=== PATIENT | male | born 1990 | race Hispanic/Latino ===

== ENCOUNTER 2020-02-21 07:35 | Inpatient (IN) | payer BC, OTHER ==
[~2020-02-21] VITALS: Ht 172.7 cm; Wt 96.2 kg
[2020-02-21] VITALS (10 sets, daily range): BP systolic 99–137; BP diastolic 59–75
[~2020-02-21 07:35] MED LIST: ACETAMINOPHEN PO; CREON DR 6,000 U1 EA PO; CRESTOR; CRESTOR40 MG PO; HYDROCODONE PO; LEVEMIR 3M100 UNITS/ SQ; LOPID; LORTAB 10-5001 EACH PO; NEXIUM40 MG PO; NOVOLOG MI100 UNIT/1 SQ; PROTONIX40 M1 PO; TRICOR145 MG PO; Z.0.CRESTOR20 MG PO; Z.0.LOPID600 MG PO; Z.0.PROTONIX40 MG PO; Z.0.ZOCOR20 MG PO
[2020-02-21] MEDS ORDERED: HYDROCODONE/APAP 10MG-325MG TAB PO ONE (07:45)
[2020-02-21] MEDS ORDERED: SODIUM CHLORIDE 0.9% 1000ML 1,000 ML IV SCH ×2 (08:00→10:00)
--- NOTE | 2020-02-21 08:01 | Emergency Department Note ---
History of Present Illnes History of Present Illness Chief Complaint: Chest Pain History of Present Illness This is a 30 year old male Chief Complaint Comment PATIENT IN FROM HOME WITH COMPLAINTS OF EPIGASTRIC PAIN SINCE YESTERDAY; STATES HE FEELS THAT IT IS HIS PANCREAS - THAT HE HAS HAD ISSUES WITH IT SINCE HE WAS A TEENAGER. PATIENT ALERT AND ORIENTED, RESP EVEN AND NONLABORED, APPEARS IN NO DISTRESS, RATES PAIN 02/24 Historian: Patient Arrival Mode: Car Appellate Court Judge Required: No Onset (how long ago): day(s) (1) Location: epigastrum Quality: Sharp Radiation: Reports non-radiation Severity: severe Onset quality: gradual Duration (how long): day(s) (1) Timing of current episode: constant Progression: worsening Chronicity: new Context: Denies recent illness, Denies recent surgery Relieving factors: none Exacerbating factors: none Associated symptoms: Reports denies other symptoms Treatments prior to arrival: none Past Medical/Family History Physician Review I have reviewed the patient's past medical and family history. Any updates have been documented here. Past Medical History Recent Fever: No Clinical Suspicion of Infectio: No New/Unexplained Change in Ment: No Past Medical History: Diabetes, GERD Other Medical History: PANCREATITIS, GERD Past Surgical History: None Other Last Tetanus: UNKNOWN Review of Systems Review of Systems Constitutional: Reports no symptoms EENTM: Reports no symptoms Cardiovascular: Reports no symptoms Respiratory: Reports no symptoms Gastrointestinal: Reports as per HPI, Reports abdominal pain Genitourinary: Reports no symptoms Musculoskeletal: Reports no symptoms Integumentary: Reports no symptoms Neurological: Reports no symptoms Psychological: Reports no symptoms Endocrine: Reports no symptoms Hematological/Lymphatic: Reports no symptoms Physical Exam Related Data Allergies: Coded Allergies: meperidine (Verified Allergy, Mild, ITCHING, 02/21/20) Triage Vital Signs Vital Signs Date Time Temp Pulse Resp B/P (MAP) Pulse Ox O2 Delivery O2 Flow Rate FiO2 02/21/20 07:39 97.5 79 18 150/84 100 Room Air Vital signs reviewed: Yes Physical Exam CONSTITUTIONAL Constitutional: Present well-developed, Present well-nourished HENT HENT: Present normocephalic, Present atraumatic, Present oropharynx cl ear/moist, Present nose normal HENT L/R: Present left ext ear normal, Present right ext ear normal EYES Eyes: Reports PERRL, Reports conjunctivae normal NECK Neck: Present ROM normal PULMONARY Pulmonary: Present effort normal, Present breath sounds normal CARDIOVASCULAR Cardiovascular: Present regular rhythm, Present heart sounds normal, Present capillary refill normal, Present normal rate GASTROINTESTINAL Abdominal: Present soft, Present bowel sounds normal, Present tender (Mild epigastrum) GENITOURINARY Genitourinary: Present exam deferred SKIN Skin: Present warm, Present dry MUSCULOSKELETAL Musculoskeletal: Present ROM normal NEUROLOGICAL Neurological: Present alert, Present oriented x 3, Present no gross motor or se nsory deficits PSYCHOLOGICAL Psychological: Present mood/affect normal, Present judgement normal Results Laboratory Lab results reviewed: Yes Imaging Imaging results reviewed: Yes Diagnostics Tests Diagnostic test(s) reviewed: Yes Procedures 12 Lead ECG Interpretation ECG Interpretation : Appellate Court Judge: Interpreted by ED physician Date: Feb 21, 2020 Rhythm: sinus rhythm Rate: normal QRS axis: normal ST segments normal: Yes T waves normal: Yes Clinical Impression: normal ECG Assessment & Plan Medical Decision Making MDM 30-year-old male with a past medical history significant for diabetes and hyper lipidemia presents emergency department for epigastric abdominal pain. Initial differential includes hypertriglyceridemia, otitis, DKA, gastritis. Examination shows mild epigastric tenderness to palpation. Workup shows glucose 240, lipase 240 and anion gap 28. He was given 2 boluses of normal saline, pain medicine, started on DKA protocol. Etiology could be secondary to hypertriglyceridemia but it will take time to get this laboratory workup back. Discussed patient with Dr. Nataliia Jones who has agreed to admit her to the ICU for DKA, pancreatitis, potential hypertriglyceridemia. Reassessment Reassessment time: 10:19 Reassessment Well appearing, pain improved Assessment & Plan Final Impression: (1) Pancreatitis (2) DKA (diabetic ketoacidoses) Depart Disposition: ADMITTED Last Vital Signs Date Time Temp Pulse Resp B/P (MAP) Pulse Ox O2 Delivery O2 Flow Rate FiO2 02/21/20 07:39 97.5 79 18 150/84 100 Room Air Medications in the ED Acetaminophen/ Hydrocodone Bitart 1 ea ONCE ONCE PO ; Start 02/21/20 at 07:45; Stop 02/21/20 at 07:46; Status UNV TYSON GRANT MD Feb 21, 2020 08:01
[2020-02-21 08:15] LABS: BASOPHILS # (AUTO) 0.1 (0.0-0.1); BASOPHILS % 0.8 % (0.0-1.0); EOSINOPHILS # (AUTO) 0.2 (0.0-0.4); EOSINOPHILS % 2.4 % (0.0-6.0); HEMATOCRIT 40.6 % (38.2-49.6); HEMOGLOBIN 15.1 g/dL (14.0-18.0); LYMPHOCYTES # (AUTO) 1.3 (1.0-3.2); LYMPHOCYTES % 17.1 % (18.0-39.1); MEAN CORPUSCULAR HEMOGLOBIN 30.7 pg (28-32); MEAN CORPUSCULAR HGB CONC 37.2 g/dL (31-35); MEAN CORPUSCULAR VOLUME 82.5 fL (81-99); MONOCYTES # (AUTO) 0.5 (0.2-0.8); NEUTROPHILS # (AUTO) 5.4 (2.1-6.9); NEUTROPHILS % 72.6 % (38.7-80.0); PLATELET COUNT 137 x10e3/uL (140-360); RED BLOOD COUNT 4.92 x10e6/uL (4.3-5.7)
[2020-02-21] MEDS ORDERED: ONDANSETRON HCL INJ 2MG/ML 2ML 2 MG/ML VIAL IV STA (08:39)
[2020-02-21 08:43] LABS: LIPASE 257 U/L (8-78)
[2020-02-21] MEDS ORDERED: ONDANSETRON HCL INJ 2MG/ML 2ML 2 MG/ML VIAL ONE (08:50)
[2020-02-21 08:51] LABS: ALANINE AMINOTRANSFERASE 30 IU/L (0-55); ALBUMIN 4.1 g/dL (3.5-5.0); ALBUMIN/GLOBULIN RATIO 0.7 (0.8-2.0); ALKALINE PHOSPHATASE 88 IU/L (40-150); ANION GAP 28.1 mmol/L (8-16); BLOOD UREA NITROGEN 12 mg/dL (7-26); BUN/CREATININE RATIO 15 (6-25); CALCIUM 9.3 mg/dL (8.4-10.2); CARBON DIOXIDE 10 mmol/L (22-29); CHLORIDE 99 mmol/L (98-107); CREATININE, SERUM 0.81 mg/dL (0.72-1.25); EST GLOMERULAR FILTRATION RATE > 60 ML/MIN (60-); GLUCOSE 233 mg/dL (74-118); POTASSIUM 4.1 mmol/L (3.5-5.1); SODIUM 133 mmol/L (136-145)
--- NOTE | 2020-02-21 08:53 | Diagnostic Imaging Report ---
EXAMINATION: CHEST SINGLE (PORTABLE) INDICATION: Chest pain COMPARISON: Report of chest radiograph from 01/23/2013 (images not available for comparison) FINDINGS: LINES/TUBES:None LUNGS:The lungs are well-inflated. No focal consolidation or pulmonary edema. PLEURA:No pleural effusion or pneumothorax. MEDIASTINUM:The cardiomediastinal silhouette appears normal in size and shape. BONES/SOFT TISSUES:No acute osseous injury. ABDOMEN:No free air under the diaphragm. IMPRESSION: No focal pneumonia or pulmonary edema. Signed by: Matilde Kraus MD on 02/21/2020 8:50 AM
[2020-02-21] MEDS ORDERED: FENTANYL CITRATE/PF 100MCG/2 ML INJ IV ONE (09:15)
[2020-02-21] MEDS ORDERED: FENTANYL CITRATE/PF 100MCG/2 ML INJ ONE (09:38)
[2020-02-21 09:50] LABS: CLARITY,URINE CLEAR (CLEAR); COLOR,URINE YELLOW (YELLOW); KETONES,URINE 2+ (NEGATIVE); LEUKOCYTE ESTERASE ,URINE NEGATIVE (NEGATIVE); NITRITE,URINE NEGATIVE (NEGATIVE); PROTEIN,URINE DIPSTICK 1+ (NEGATIVE); URINE UROBILINOGEN 0.2 mg/dL (0.2 - 1)
[2020-02-21 09:51] LABS: BILIRUBIN,URINE SMALL (NEGATIVE)
[2020-02-21] MEDS ORDERED: POTASSIUM CHLORIDE 20MEQ/100ML 100 ML INJ PRN (10:00)
[2020-02-21] MEDS ORDERED: MAGNESIUM SULF 1GRAM/DEXTROSE 100 ML IV PRN (10:00)
[2020-02-21 10:10] LABS: BACTERIA,URINE FEW /HPF; EPITHELIAL CELLS,URINE FEW /LPF; RBC,URINE 0-5 /HPF (0-5); WBC,URINE (MAN) 0-5 /HPF (0-5)
--- OUTSIDE RECORDS SUMMARY | 2020-02-21 10:18 | XMS REPORT | Continuity of Care Document ---
Author Author [facility] Organization [facility] Address [address] [place] [address] Dr. Claudio [address] [place] [id number] Phone Unavailable Care Team Providers Care Supplier Quality Manager Name Role Phone Dionne Fuchs Attphykaushal Unavailable Payers Payer Name Policy Type Policy Number Effective Date Expiration Date S ource Problems This patient has no known problems. Allergies, Adverse Reactions, Alerts Allergy Name Allergy Type Status Severity Reaction(s) Onset Date Inacti ve Date Treating Clinician Comments Source CHG WIPES DA Active UT 2018-08-08 00:00:00 [facility] CHG WIPES DA Active MO 2018-07-21 00:00:00 [facility] No Known Allergies DA Active U 2018-06-21 00:00:00 [facility] No Known Allergies DA Active U 2017-10-20 00:00:00 [facility] Medications This patient has no known medications. Procedures This patient has no known procedures. Results Test Description Test Time Test Comments Results Result Comments Source CHEST SINGLE (PORTABLE) 2020-02-21 08:49:00 [facility] [address], [place] [address] Patient Name: BAO ESQUIVEL MR #: [id number] : 1990 Age/Sex: 30/M Req #: [id number] Adm Physician: Ordered by: Tyson Fuchs MD Report #: [id number] Location: ER Room/Bed: Procedure: [id number] DX/CHEST SINGLE (PORTABLE) Exam Date: 02/21/20 Exam Time: 0750 REPORT STATUS: Signed EXAMINATION: CHEST SINGLE (PORTABLE) INDICATION: Chest pain COMPARISON: Report of chest radiograph from 01/23/2013 (images not available for comparison) FINDINGS: LINES/TUBES:None LUNGS:The lungs are well-inflated. No focal consolidation or pulmonary edema. PLEURA:No pleural effusion or pneumothorax. MEDIASTINUM:The cardiomediastinal silhouette appears normal in size and shape. BONES/SOFT TISSUES:No acute osseous injury. ABDOMEN:No free air under the diaphragm. IMPRESSION: No focal pneumonia or pulmonary edema. Signed by: Yomaira Watkins MD on 02/21/2020 8:50 AM Dictated By: YOMAIRA WATKINS MD 0850 Transcribed By: SUZIE on 02/21/20 0850 COPY TO: TYSON FUCHS MD LIPID PROFILE (CORONARY RISK) 2018-08-10 08:23:00 Test Item TRIGLYCERIDES (test code = TRIG) 290 mg/dL 40-150 H CHOLESTEROL (test code = CHOL) 249 mg/dL <200 H CHOLESTEROL/HDL RATIO (test code = CHOLHDL) 7.11 RATIO 3.43-4.97 H RISK ASSOCIATED WITH CHOL/HDL RATIOS: RISK MALE FEMALE1/2 AVERAGE 3.43 3.27AVERAGE 4.97 4.442X AVERAGE 9.55 7.053X AVERAGE 23.39 11.04 NOTE THAT THE REFERENCE VALUE IS RELATEDTO RISK LEVELS RECOMMENDED BY THE NATL.HEART, LUNG, AND BLOOD INST. HDL CHOLESTEROL (test code = HDL) 35.0 mg/dL 32-72 N LIPOPROTEIN LDL (test code = LDL) 139 mg/dL 0-100 H <100 [id number] NEAR OPTIMAL/ABOVE [id number] HIGH>QU=636 VERY HIGH*Guidelines provided by the National Cholesterol EducationProgram Adult Treatment Panel III [id number] 05:56:00* Test Item Value Reference Range Interpretation Comments GLUBED (test code = GLUBED) 197 MG/DL 70-110 H 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 at [facility] [id number] 05:04:00* Test Item Value Reference Range Interpretation Comments GLUBED (test code = GLUBED) 192 MG/DL 70-110 H 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 at [facility]2019-03-25 21:11:00* Test Item Value Reference Range Interpretation Comments GLUBED (test code = GLUBED) 316 MG/DL 70-110 H 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 at [facility]2019-03-25 13:22:00* Test Item Value Reference Range Interpretation Comments GLUBED (test code = GLUBED) 176 MG/DL 70-110 H 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 at [facility]2019-03-25 07:21:00* Test Item Value Reference Range Interpretation Comments GLUBED (test code = GLUBED) 188 MG/DL 70-110 H 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 at [facility] COMPREHENSIVE METABOLIC [id number] 07:03:00* Test Item Value Reference Range Interpretation Comments SODIUM (test code = NA) 137 mEq/L 134-147 N POTASSIUM (test code = K) 4.0 mEq/L 3.4-5.0 N CHLORIDE (test code = CL) 106 mEq/L 100-108 N CARBON DIOXIDE (test code = CO2) 29 mEq/L 21-33 ANION GAP (test code = GAP) 6 0-20 N GLUCOSE (test code = GLU) 164 mg/dL 70-110 H BLOOD UREA NITROGEN (test code = BUN) 19 mg/dL 7-18 H GLOMERULAR FILTRATION RATE (test code = GFR) 195.2 105-110 H Units of measure = ml/min/1.73 m2 CREATININE (test code = CREAT) 0.5 mg/dL 0.6-1.3 L TOTAL PROTEIN (test code = PROT) 6.7 g/dL 6.4-8.2 ALBUMIN (test code = ALB) 3.20 g/dL 3.4-5.0 L CALCIUM (test code = CA) 8.7 mg/dL 8.0-10.5 N BILIRUBIN TOTAL (test code = BILT) 0.60 mg/dL 0.0-1.0 SGOT/AST (test code = AST) 22 IUnit/L 15-37 SGPT/ALT (test code = ALT) 14 IUnit/L 15-65 L ALKALINE PHOSPHATASE TOTAL (test code = ALKP) 93 IUnit/L 20-125 N [id number] 07:03:00* Test Item Value Reference Range Interpretation Comments LIPASE (test code = LIP) 4646 IUnit/L 73-393 H [id number] 06:08:00* Test Item Value Reference Range Interpretation Comments GLUBED (test code = GLUBED) 166 MG/DL 70-110 H 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 at [facility] HGBA1C%2018-08-09 06:07:00* Test Item Value Reference Range Interpretation Comments HGBA1C% (test code = HGBA1C%) 11.0 %A1C 4.8-6.0 H CBC W/AUTO [id number] 05:10:00* Test Item Value Reference Range Interpretation Comments WHITE BLOOD CELL (test code = WBC) 5.60 x10 3/uL 4.5-11.0 RED BLOOD CELL (test code = RBC) 4.78 x10 6/uL 4.00-5.60 N HEMOGLOBIN (test code = HGB) 12.6 g/dL 12.5-16.9 HEMATOCRIT (test code = HCT) 42.1 % 37.5-50.7 N MEAN CELL VOLUME (test code = MCV) 88.1 fL 81.0-99.0 MEAN CELL HGB (test code = MCH) 26.4 pg 27.0-33.0 L MEAN CELL HGB CONCETRATION (test code = MCHC) 29.9 g/dL 33.0-37. 0 L RED CELL DISTRIBUTION WIDTH CV (test code = RDW) 14.4 % 11.5- 14.5 N RED CELL DISTRIBUTION WIDTH SD (test code = RDW-SD) 46.2 fL 37 .0-54.0 N PLATELET COUNT (test code = PLT) 141 x10 3/uL 150-400 L MEAN PLATELET VOLUME (test code = MPV) 12.4 fL 7.0-9.0 H NEUTROPHIL % (test code = NT%) 52.3 % 56.0-77.0 L IMMATURE GRANULOCYTE % (test code = IG%) 0.2 % 0.0-2.0 N LYMPHOCYTE % (test code = LY%) 31.6 % 14.0-32.0 N MONOCYTE % (test code = MO%) 8.6 % 4.8-9.0 N EOSINOPHIL % (test code = EO%) 6.6 % 0.3-3.7 H BASOPHIL % (test code = BA%) 0.7 % 0.0-2.0 N NUCLEATED RBC % (test code = NRBC%) 0.0 % 0-0 N NEUTROPHIL # (test code = NT#) 2.93 x10 3/uL 2.0-7.6 N IMMATURE GRANULOCYTE # (test code = IG#) 0.01 x10 3/uL 0.00-0.03 N LYMPHOCYTE # (test code = LY#) 1.77 x10 3/uL 1.0-3.8 N MONOCYTE # (test code = MO#) 0.48 x10 3/uL 0.1-0.8 N EOSINOPHIL # (test code = EO#) 0.37 x10 3/uL 0.0-0.2 H BASOPHIL # (test code = BA#) 0.04 x10 3/uL 0.0-0.2 N NUCLEATED RBC # (test code = NRBC#) 0.00 x10 3/uL 0.0-0.1 N MANUAL DIFF REQUIRED (test code = MDIFF) NO [id number] 18:17:00* Test Item Value Reference Range Interpretation Comments GLUBED (test code = GLUBED) 198 MG/DL 70-110 H 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 at [facility] [id number] 15:26:00* Test Item Value Reference Range Interpretation Comments GLUBED (test code = GLUBED) 310 MG/DL 70-110 H 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 at [facility] [id number] 08:54:00* Test Item Value Reference Range Interpretation Comments GLUBED (test code = GLUBED) 291 MG/DL 70-110 H 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 at [facility] URINALYSIS [id number] 23:09:00* Test Item Value Reference Range Interpretation Comments UA COLOR (test code = COLU) YELLOW YEL/STRAW UA APPEARANCE (test code = APPU) CLEAR CLEAR UA GLUCOSE DIPSTICK (test code = DGLUU) 3+ NEGATIVE A UA BILIRUBIN DIPSTICK (test code = BILU) NEGATIVE NEGATIVE UA KETONE DIPSTICK (test code = KETU) 1+ NEGATIVE A UA SPECIFIC GRAVITY (test code = SGU) > 1.060 1.005-1.030 H UA BLOOD DIPSTICK (test code = REENA) NEGATIVE NEGATIVE UA PH DIPSTICK (test code = VITOR) 5.0 5.0-7.0 N UA PROTEIN DIPSTICK (test code = PROU) NEGATIVE NEGATIVE UA UROBILINIOGEN DIPSTICK (test code = URO) 0.2 mg/dL 0.2-1.0 UA NITRITE DIPSTICK (test code = OMAR) NEGATIVE NEGATIVE UA LEUKOCYTE ESTERASE DIPSTICK (test code = LEUU) NEGATIVE NEGA TIVE UA WBC (test code = WBCU) 0-3 WBC/HPF 0-3 UA RBC (test code = RBCU) 4-10 RBC/HPF 0-3 UA BACTERIA (test code = BACU) NONE SEEN /HPF NONE SEEN UA SQUAMOUS CELLS (test code = SQU) 0-5 /HPF NONE SEEN UA MUCUS (test code = MUCU) TRACE /LPF NONE SEEN COMMENTS: Clean Catch- CT ABD PELVIS [id number] 22:36:00 Name: BAO ESQUIVEL [facility] : 1990 Age/S: 28 / M [address] [place] [address] Unit #: [id number] Loc: [place] [address] Phys: Priya Brooks SLIP TENDER Acct: [id number] Di s Date: Status: REG ER PHONE #: Exam Date: 08/07/2018 2142 FAX #: Reason: ABDOMINAL PAIN EXAMS: CPT CODE: [id number] CT ABD PELVIS W/CONT 59080 Clinical Indication: ABDO DAVID PAIN Comparison: CT abdomen pelvis July 20, 2018 TECHN IQUE: Helical imaging was performed after injection of IV contrast, from t he lung base through the symphysis with multiplanar reformations obtained. IV CONTRAST: 100 mL of Isovue-300 GI CONTRAST: Oral contrast was ad ministered. DLP: 351 mGy-cm FINDINGS: CT ABDO MEN AND PELVIS WITH CONTRAST: LUNG BASE: The lung bases are clear . LIVER: The liver parenchyma is normal in appearance without mass es or intrahepatic biliary ductal dilatation. The portal vein is normal in caliber. BILIARY TREE: The common bile duct is normal in ca liber without evidence of filling defects. GALLBLADDER: The gallbladder is unremarkable, there is no evidence of cholelithiasis or cho lecystitis. PANCREAS: Moderate amount of fat stranding is seen khari und the entire pancreas. The extent of edema and inflammation appears sli ghtly improved since the last exam. No organized fluid collection is seen around the pancreas. SPLEEN: The spleen is normal in size a nd there are no parenchymal abnormalities. ADRENALS: The rig ht adrenal gland is unremarkable. The left adrenal gland is unremarkable . KIDNEYS: The kidneys demonstrates normal contrast enhancement. T here are no masses. There is no evidence of renal or ureteral calculi. There is no evidence of hydronephrosis. BOWEL: The visualized p ortion of the esophagus is unremarkable. The stomach is unremarkable. Th e small bowel is normal in caliber and there is no evidence of masses or o bstruction. . The colon is normal in caliber without any masses. Divertic ulosis without evidence of PAGE 1 Signed Report (CONTINUED) Name: BAO ESQUIVEL [facility] Marlen Galindo roma : 1990 Age/S: 28 / M [address] [place] [address] Unit #: [id number] Loc: [place] [address] Phys: Eugenia Brooks [facility] Acct: [id number] Dis Date: Status: REG ER PHONE #: [phone] Exam Date: 08/07/2018 214 FAX #: [phone] Reason: ABDOMINAL PAIN EXAMS: CPT CODE: [id number] CT ABD PELVIS W/CONT 58976 < Continued> diverticulitis is seen in the distal colon. APPENDIX: The appendix takes in the right upper quadrant of the abdomen with the tip adjacent near the inflamed pancreas. The appendix measures 8 mm in caliber without any significant fat stranding. 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 PELVIS: There are no pelvic masses. The urinary bladder is unremarkable. The prostate and seminal vesicles are unremarkable. PERITONEUM: There is no evidence for free intraperitoneal fluid or air. SOFT TISSUES: The soft tissues are unremarkable. There is no evidence of masses or hernias. LYMPH NODES: There is no evidence of mesenteric, retroperitoneal, or inguinal lymphadenopathy. VASCULATURE: The abdominal aorta is normal in caliber. The branches of the abdominal aorta are widely patent. MUSCULOSKELETAL: The visualized bony skeleton is unremarkable. IMPRESSION: 1. Interval mild decreased in peripancreatic edema of the inflamed pancreas since the last exam. No evidence of pseudocyst is seen. Enhancement of the pancreatic head and body is also improved since the last exam. 2. Diverticulosis without evidence of diverticulitis in the distal colon. 3. The appendix is located near the inflamed pancreas in the right upper quadrant of the abdomen. The appendix measures 8mm in caliber without any significant fat stranding. SL: [id number] at 2236 Reported and signed by: Pepe Katz M.D. PAGE 2 Signed Report (CONTINUED) Name: BAO ESQUIVEL [facility] : 1990 Age/S: 28 / M [address] [place] [address] Blvd Unit #: [id number] Loc: [place] [address] Phys: Eugenia Brooks Acct: [id number] Dis Date: Status: REG ER PHONE #: [phone] Exam Date: 08/07/20182141 FAX #: Reason: ABDOMINAL PAIN EXAMS: CPT CODE: [id number] CT ABD PE LVIS W/CONT 99659 <Continued> CC: Joan Brooks Technologist:Kellee Hodgson RT(R)(CT); Juliana Lemus CTDI: DLP: Trnscb Date/Time: 08/07/2018 (2235) [email or web address] Orig Print D/T: S: 08/07/2018 (2238) CTDI: DLP: PAGE 3 Signed Report COMPREHENSIVE METABOLIC PANEL 2018-08-07 21:08:00* Test Item Value Reference Range Interpretation Comments SODIUM (test code = NA) 134 mEq/L 134-147 N POTASSIUM (test code = K) 4.5 mEq/L 3.4-5.0 N SP ECIMEN 1+ HEMOLYZED.Results known to be adversely affected by hemolysis are: Potassium Magnesium LDH Phosphorus GROSS LIPEMIA OBSERVED CHLORIDE (test code = CL) 99 mEq/L 100-108 L CARBON DIOXIDE (test code = CO2) 23 mEq/L 21-33 N ANION GAP (test code = GAP) 17 0-20 N GLUCOSE (test code = GLU) 258 mg/dL 70-110 H BLOOD UREA NITROGEN (test code = BUN) 14 mg/dL 7-18 N GLOMERULAR FILTRATION RATE (test code = GFR) 158.2 105-110 H Units of measure = ml/min/1.73 m2 CREATININE (test code = CREAT) 0.6 mg/dL 0.6-1.3 N TOTAL PROTEIN (test code = PROT) 8.7 g/dL 6.4-8.2 H ALBUMIN (test code = ALB) 3.80 g/dL 3.4-5.0 N CALCIUM (test code = CA) 7.9 mg/dL 8.0-10.5 L BILIRUBIN TOTAL (test code = BILT) 0.90 mg/dL 0.0-1.0 N SGOT/AST (test code = AST) 54 IUnit/L 15-37 H SGPT/ALT (test code = ALT) 39 IUnit/L 15-65 N ALKALINE PHOSPHATASE TOTAL (test code = ALKP) 123 IUnit/L 20-125 N HEPATIC FUNCTION [id number] 21:08:00* Test Item Value Reference Range Interpretation Comments BILIRUBIN DIRECT (test code = BILD) < 0.10 MG/DL 0.0-0.30 BILIRUBIN INDIRECT (test code = BILIND) 0.80 MG/DL [id number] 21:08:00* Test Item Value Reference Range Interpretation Comments LIPASE (test code = LIP) 4704 IUnit/L 73-393 H PROTHROMBIN [id number] 21:00:00* Test Item Value Reference Range Interpretation Comments PROTHROMBIN TIME PATIENT (test code = PTP) 11.2 SECONDS 9.3-12.9 N INTERNATIONAL NORMAL RATIO (test code = INR) 1.0 0.8-1.2 N TARGET INR BY INDICATION Indication INR1. Prophylaxis of venous thrombosis 2.0 - 3.0 (orthopedic surgery), Prophylaxis of venous thrombosis (other than high-risk surgery), Treatment of Deep Vein Thrombosis/Pulmonary Embolism, Prevention of systemic embolism - Tissue heart valves, Acute Myocardial Infarction (to prevent systemic embolism), Valvular heart disease, Atrial Fibrillation, Bileaflet mechanical valve in aortic position.2. Mechanical prosthetic valves (high risk), 2.5 - 3.5 Presence of Lupus Anticoagulant or Antiphospholipid Antibodies, Prevention of systemic embolism - Acute Myocardial Infarction (to prevent recurrent infarct). THROMBOPLASTIN TIME [id number] 21:00:00* Test Item Value Reference Range Interpretation Comments THROMBOPLASTIN TIME PARTIAL (test code = PTT) 34.2 Seconds 25.0-39. 5 N Therapeutic Range: 61.8-83.8 Sec Effective 06/15/2013 CBC W/AUTO [id number] 20:32:00* Test Item Value Reference Range Interpretation Comments WHITE BLOOD CELL (test code = WBC) 12.55 x10 3/uL 4.5-11.0 H RED BLOOD CELL (test code = RBC) 5.65 x10 6/uL 4.00-5.60 H HEMOGLOBIN (test code = HGB) 16.2 g/dL 12.5-16.9 N HEMATOCRIT (test code = HCT) 46.9 % 37.5-50.7 N MEAN CELL VOLUME (test code = MCV) 83.0 fL 81.0-99.0 N MEAN CELL HGB (test code = MCH) 28.7 pg 27.0-33.0 N MEAN CELL HGB CONCETRATION (test code = MCHC) 34.5 g/dL 33.0-37. 0 N RED CELL DISTRIBUTION WIDTH CV (test code = RDW) 13.3 % 11.5- 14.5 N RED CELL DISTRIBUTION WIDTH SD (test code = RDW-SD) 40.6 fL 37 .0-54.0 N PLATELET COUNT (test code = PLT) 215 x10 3/uL 150-400 N MEAN PLATELET VOLUME (test code = MPV) 12.0 fL 7.0-9.0 H NEUTROPHIL % (test code = NT%) 83.7 % 56.0-77.0 H IMMATURE GRANULOCYTE % (test code = IG%) 0.3 % 0.0-2.0 N LYMPHOCYTE % (test code = LY%) 8.7 % 14.0-32.0 L MONOCYTE % (test code = MO%) 5.7 % 4.8-9.0 N EOSINOPHIL % (test code = EO%) 0.8 % 0.3-3.7 N BASOPHIL % (test code = BA%) 0.8 % 0.0-2.0 N NUCLEATED RBC % (test code = NRBC%) 0.2 % 0-0 H NEUTROPHIL # (test code = NT#) 10.51 x10 3/uL 2.0-7.6 H IMMATURE GRANULOCYTE # (test code = IG#) 0.04 x10 3/uL 0.00-0.03 H LYMPHOCYTE # (test code = LY#) 1.09 x10 3/uL 1.0-3.8 N MONOCYTE # (test code = MO#) 0.71 x10 3/uL 0.1-0.8 N EOSINOPHIL # (test code = EO#) 0.10 x10 3/uL 0.0-0.2 N BASOPHIL # (test code = BA#) 0.10 x10 3/uL 0.0-0.2 N NUCLEATED RBC # (test code = NRBC#) 0.02 x10 3/uL 0.0-0.1 N MANUAL DIFF REQUIRED (test code = MDIFF) NO [id number] 08:30:00* Test Item Value Reference Range Interpretation Comments LIPASE (test code = LIP) 712 IUnit/L 73-393 H CBC W/AUTO [id number] 08:27:00* Test Item Value Reference Range Interpretation Comments WHITE BLOOD CELL (test code = WBC) 3.15 x10 3/uL 4.5-11.0 L RED BLOOD CELL (test code = RBC) 4.35 x10 6/uL 4.00-5.60 N HEMOGLOBIN (test code = HGB) 11.6 g/dL 12.5-16.9 L HEMATOCRIT (test code = HCT) 38.7 % 37.5-50.7 N MEAN CELL VOLUME (test code = MCV) 89.0 fL 81.0-99.0 MEAN CELL HGB (test code = MCH) 26.7 pg 27.0-33.0 L MEAN CELL HGB CONCETRATION (test code = MCHC) 30.0 g/dL 33.0-37. 0 L RED CELL DISTRIBUTION WIDTH CV (test code = RDW) 14.3 % 11.5- 14.5 N RED CELL DISTRIBUTION WIDTH SD (test code = RDW-SD) 47.1 fL 37 .0-54.0 N PLATELET COUNT (test code = PLT) 116 x10 3/uL 150-400 L MEAN PLATELET VOLUME (test code = MPV) 12.5 fL 7.0-9.0 H NEUTROPHIL % (test code = NT%) 49.0 % 56.0-77.0 L IMMATURE GRANULOCYTE % (test code = IG%) 0.6 % 0.0-2.0 N LYMPHOCYTE % (test code = LY%) 39.0 % 14.0-32.0 H MONOCYTE % (test code = MO%) 7.9 % 4.8-9.0 N EOSINOPHIL % (test code = EO%) 2.9 % 0.3-3.7 N BASOPHIL % (test code = BA%) 0.6 % 0.0-2.0 N NUCLEATED RBC % (test code = NRBC%) 0.0 % 0-0 N NEUTROPHIL # (test code = NT#) 1.54 x10 3/uL 2.0-7.6 L IMMATURE GRANULOCYTE # (test code = IG#) 0.02 x10 3/uL 0.00-0.03 N LYMPHOCYTE # (test code = LY#) 1.23 x10 3/uL 1.0-3.8 N MONOCYTE # (test code = MO#) 0.25 x10 3/uL 0.1-0.8 N EOSINOPHIL # (test code = EO#) 0.09 x10 3/uL 0.0-0.2 N BASOPHIL # (test code = BA#) 0.02 x10 3/uL 0.0-0.2 N NUCLEATED RBC # (test code = NRBC#) 0.00 x10 3/uL 0.0-0.1 N MANUAL DIFF REQUIRED (test code = MDIFF) NO COMMENTS: Daily while on [id number] 08:05:00* Test Item Value Reference Range Interpretation Comments GLUBED (test code = GLUBED) 169 MG/DL 70-110 H 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 at [facility] [id number] 06:09:00* Test Item Value Reference Range Interpretation Comments GLUBED (test code = GLUBED) 154 MG/DL 70-110 H 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 at [facility] [id number] 23:53:00* Test Item Value Reference Range Interpretation Comments GLUBED (test code = GLUBED) 143 MG/DL 70-110 H 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 at [facility] [id number] 17:22:00* Test Item Value Reference Range Interpretation Comments GLUBED (test code = GLUBED) 112 MG/DL 70-110 H 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 at [facility] CBC W/AUTO [id number] 15:03:00* Test Item Value Reference Range Interpretation Comments WHITE BLOOD CELL (test code = WBC) 3.93 x10 3/uL 4.5-11.0 L RED BLOOD CELL (test code = RBC) 4.37 x10 6/uL 4.00-5.60 N HEMOGLOBIN (test code = HGB) 11.9 g/dL 12.5-16.9 L HEMATOCRIT (test code = HCT) 37.2 % 37.5-50.7 L MEAN CELL VOLUME (test code = MCV) 85.1 fL 81.0-99.0 N MEAN CELL HGB (test code = MCH) 27.2 pg 27.0-33.0 N MEAN CELL HGB CONCETRATION (test code = MCHC) 32.0 g/dL 33.0-37. 0 L RED CELL DISTRIBUTION WIDTH CV (test code = RDW) 14.8 % 11.5- 14.5 H RED CELL DISTRIBUTION WIDTH SD (test code = RDW-SD) 45.5 fL 37 .0-54.0 N PLATELET COUNT (test code = PLT) 94 x10 3/uL 150-400 L MEAN PLATELET VOLUME (test code = MPV) 12.5 fL 7.0-9.0 H NEUTROPHIL % (test code = NT%) 63.8 % 56.0-77.0 N IMMATURE GRANULOCYTE % (test code = IG%) 0.3 % 0.0-2.0 N LYMPHOCYTE % (test code = LY%) 25.4 % 14.0-32.0 N MONOCYTE % (test code = MO%) 6.9 % 4.8-9.0 N EOSINOPHIL % (test code = EO%) 3.1 % 0.3-3.7 N BASOPHIL % (test code = BA%) 0.5 % 0.0-2.0 N NUCLEATED RBC % (test code = NRBC%) 0.0 % 0-0 N NEUTROPHIL # (test code = NT#) 2.51 x10 3/uL 2.0-7.6 N IMMATURE GRANULOCYTE # (test code = IG#) 0.01 x10 3/uL 0.00-0.03 N LYMPHOCYTE # (test code = LY#) 1.00 x10 3/uL 1.0-3.8 N MONOCYTE # (test code = MO#) 0.27 x10 3/uL 0.1-0.8 N EOSINOPHIL # (test code = EO#) 0.12 x10 3/uL 0.0-0.2 N BASOPHIL # (test code = BA#) 0.02 x10 3/uL 0.0-0.2 N NUCLEATED RBC # (test code = NRBC#) 0.00 x10 3/uL 0.0-0.1 N MANUAL DIFF REQUIRED (test code = MDIFF) NO COMMENTS: Daily while on HeparinPLT [id number] 15:03:00* Test Item Value Reference Range Interpretation Comments PLATELET ESTIMATE (test code = PLTEST) 116 - 145 THOUSAND ADEQUATE PLATELET MORPHOLOGY (test code = PLTMORPH) NORMAL COMMENTS: Daily while on [id number] 12:11:00* Test Item Value Reference Range Interpretation Comments GLUBED (test code = GLUBED) 168 MG/DL 70-110 H 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 at [facility] CBC W/AUTO [id number] 10:54:00* Test Item Value Reference Range Interpretation Comments WHITE BLOOD CELL (test code = WBC) 3.93 x10 3/uL 4.5-11.0 L RED BLOOD CELL (test code = RBC) 4.37 x10 6/uL 4.00-5.60 N HEMOGLOBIN (test code = HGB) 11.9 g/dL 12.5-16.9 L HEMATOCRIT (test code = HCT) 37.2 % 37.5-50.7 L MEAN CELL VOLUME (test code = MCV) 85.1 fL 81.0-99.0 N MEAN CELL HGB (test code = MCH) 27.2 pg 27.0-33.0 N MEAN CELL HGB CONCETRATION (test code = MCHC) 32.0 g/dL 33.0-37. 0 L RED CELL DISTRIBUTION WIDTH CV (test code = RDW) 14.8 % 11.5- 14.5 H RED CELL DISTRIBUTION WIDTH SD (test code = RDW-SD) 45.5 fL 37 .0-54.0 N PLATELET COUNT (test code = PLT) 94 x10 3/uL 150-400 L MEAN PLATELET VOLUME (test code = MPV) 12.5 fL 7.0-9.0 H NEUTROPHIL % (test code = NT%) 63.8 % 56.0-77.0 N IMMATURE GRANULOCYTE % (test code = IG%) 0.3 % 0.0-2.0 N LYMPHOCYTE % (test code = LY%) 25.4 % 14.0-32.0 N MONOCYTE % (test code = MO%) 6.9 % 4.8-9.0 N EOSINOPHIL % (test code = EO%) 3.1 % 0.3-3.7 N BASOPHIL % (test code = BA%) 0.5 % 0.0-2.0 N NUCLEATED RBC % (test code = NRBC%) 0.0 % 0-0 N NEUTROPHIL # (test code = NT#) 2.51 x10 3/uL 2.0-7.6 N IMMATURE GRANULOCYTE # (test code = IG#) 0.01 x10 3/uL 0.00-0.03 N LYMPHOCYTE # (test code = LY#) 1.00 x10 3/uL 1.0-3.8 N MONOCYTE # (test code = MO#) 0.27 x10 3/uL 0.1-0.8 N EOSINOPHIL # (test code = EO#) 0.12 x10 3/uL 0.0-0.2 N BASOPHIL # (test code = BA#) 0.02 x10 3/uL 0.0-0.2 N NUCLEATED RBC # (test code = NRBC#) 0.00 x10 3/uL 0.0-0.1 N MANUAL DIFF REQUIRED (test code = MDIFF) NO COMMENTS: Daily while on HeparinPLT [id number] 10:54:00* Test Item Value Reference Range Interpretation Comments PLATELET ESTIMATE (test code = PLTEST) THOUSAND ADEQUATE COMMENTS: Daily while on HeparinCBC W/AUTO [id number] 10:54:00* Test Item Value Reference Range Interpretation Comments WHITE BLOOD CELL (test code = WBC) 3.93 x10 3/uL 4.5-11.0 L RED BLOOD CELL (test code = RBC) 4.37 x10 6/uL 4.00-5.60 N HEMOGLOBIN (test code = HGB) 11.9 g/dL 12.5-16.9 L HEMATOCRIT (test code = HCT) 37.2 % 37.5-50.7 L MEAN CELL VOLUME (test code = MCV) 85.1 fL 81.0-99.0 N MEAN CELL HGB (test code = MCH) 27.2 pg 27.0-33.0 N MEAN CELL HGB CONCETRATION (test code = MCHC) 32.0 g/dL 33.0-37. 0 L RED CELL DISTRIBUTION WIDTH CV (test code = RDW) 14.8 % 11.5- 14.5 H RED CELL DISTRIBUTION WIDTH SD (test code = RDW-SD) 45.5 fL 37 .0-54.0 N PLATELET COUNT (test code = PLT) 94 x10 3/uL 150-400 L MEAN PLATELET VOLUME (test code = MPV) 12.5 fL 7.0-9.0 H NEUTROPHIL % (test code = NT%) 63.8 % 56.0-77.0 N IMMATURE GRANULOCYTE % (test code = IG%) 0.3 % 0.0-2.0 N LYMPHOCYTE % (test code = LY%) 25.4 % 14.0-32.0 N MONOCYTE % (test code = MO%) 6.9 % 4.8-9.0 N EOSINOPHIL % (test code = EO%) 3.1 % 0.3-3.7 N BASOPHIL % (test code = BA%) 0.5 % 0.0-2.0 N NUCLEATED RBC % (test code = NRBC%) 0.0 % 0-0 N NEUTROPHIL # (test code = NT#) 2.51 x10 3/uL 2.0-7.6 N IMMATURE GRANULOCYTE # (test code = IG#) 0.01 x10 3/uL 0.00-0.03 N LYMPHOCYTE # (test code = LY#) 1.00 x10 3/uL 1.0-3.8 N MONOCYTE # (test code = MO#) 0.27 x10 3/uL 0.1-0.8 N EOSINOPHIL # (test code = EO#) 0.12 x10 3/uL 0.0-0.2 N BASOPHIL # (test code = BA#) 0.02 x10 3/uL 0.0-0.2 N NUCLEATED RBC # (test code = NRBC#) 0.00 x10 3/uL 0.0-0.1 N MANUAL DIFF REQUIRED (test code = MDIFF) NO COMMENTS: Daily while on HeparinPLT [id number] 10:54:00* Test Item Value Reference Range Interpretation Comments PLATELET ESTIMATE (test code = PLTEST) THOUSAND ADEQUATE COMMENTS: Daily while on HeparinCOMPREHENSIVE METABOLIC [id number] 08:40:00 * Test Item Value Reference Range Interpretation Comments SODIUM (test code = NA) 137 mEq/L 134-147 N POTASSIUM (test code = K) 3.7 mEq/L 3.4-5.0 N CHLORIDE (test code = CL) 108 mEq/L 100-108 N CARBON DIOXIDE (test code = CO2) 22 mEq/L 21-33 N ANION GAP (test code = GAP) 11 0-20 N GLUCOSE (test code = GLU) 112 mg/dL 70-110 H BLOOD UREA NITROGEN (test code = BUN) 6 mg/dL 7-18 L GLOMERULAR FILTRATION RATE (test code = GFR) 252.6 105-110 H Units of measure = ml/min/1.73 m2 CREATININE (test code = CREAT) 0.4 mg/dL 0.6-1.3 L TOTAL PROTEIN (test code = PROT) 6.2 g/dL 6.4-8.2 L ALBUMIN (test code = ALB) 2.50 g/dL 3.4-5.0 L CALCIUM (test code = CA) 8.3 mg/dL 8.0-10.5 N BILIRUBIN TOTAL (test code = BILT) 0.70 mg/dL 0.0-1.0 N SGOT/AST (test code = AST) 21 IUnit/L 15-37 N SGPT/ALT (test code = ALT) 13 IUnit/L 15-65 L ALKALINE PHOSPHATASE TOTAL (test code = ALKP) 89 IUnit/L 20-125 N [id number] 08:40:00* Test Item Value Reference Range Interpretation Comments LIPASE (test code = LIP) 980 IUnit/L 73-393 H [id number] 08:40:00* Test Item Value Reference Range Interpretation Comments MAGNESIUM (test code = MAG) 1.90 mg/dL 1.8-2.4 N [id number] 06:37:00* Test Item Value Reference Range Interpretation Comments GLUBED (test code = GLUBED) 107 MG/DL 70-110 N 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 at [facility] [id number] 00:44:00* Test Item Value Reference Range Interpretation Comments GLUBED (test code = GLUBED) 203 MG/DL 70-110 H 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 at [facility] [id number] 18:09:00* Test Item Value Reference Range Interpretation Comments GLUBED (test code = GLUBED) 167 MG/DL 70-110 H 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 at [facility] [id number] 12:17:00* Test Item Value Reference Range Interpretation Comments GLUBED (test code = GLUBED) 100 MG/DL 70-110 N 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 at [facility] [id number] 09:59:00* Test Item Value Reference Range Interpretation Comments TRIGLYCERIDES (test code = TRIG) 248 mg/dL 40-150 H [id number] 08:13:00* Test Item Value Reference Range Interpretation Comments GLUBED (test code = GLUBED) 96 MG/DL 70-110 N 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 at [facility] CBC W/AUTO [id number] 08:09:00* Test Item Value Reference Range Interpretation Comments WHITE BLOOD CELL (test code = WBC) 4.04 x10 3/uL 4.5-11.0 L RED BLOOD CELL (test code = RBC) 4.38 x10 6/uL 4.00-5.60 N HEMOGLOBIN (test code = HGB) 11.7 g/dL 12.5-16.9 L HEMATOCRIT (test code = HCT) 37.1 % 37.5-50.7 L MEAN CELL VOLUME (test code = MCV) 84.7 fL 81.0-99.0 MEAN CELL HGB (test code = MCH) 26.7 pg 27.0-33.0 L MEAN CELL HGB CONCETRATION (test code = MCHC) 31.5 g/dL 33.0-37. 0 L RED CELL DISTRIBUTION WIDTH CV (test code = RDW) 14.5 % 11.5- 14.5 N RED CELL DISTRIBUTION WIDTH SD (test code = RDW-SD) 44.8 fL 37 .0-54.0 N PLATELET COUNT (test code = PLT) 100 x10 3/uL 150-400 L MEAN PLATELET VOLUME (test code = MPV) 12.9 fL 7.0-9.0 H NEUTROPHIL % (test code = NT%) 57.7 % 56.0-77.0 N IMMATURE GRANULOCYTE % (test code = IG%) 0.2 % 0.0-2.0 N LYMPHOCYTE % (test code = LY%) 27.7 % 14.0-32.0 N MONOCYTE % (test code = MO%) 9.9 % 4.8-9.0 H EOSINOPHIL % (test code = EO%) 3.5 % 0.3-3.7 N BASOPHIL % (test code = BA%) 1.0 % 0.0-2.0 N NUCLEATED RBC % (test code = NRBC%) 0.0 % 0-0 N NEUTROPHIL # (test code = NT#) 2.33 x10 3/uL 2.0-7.6 N IMMATURE GRANULOCYTE # (test code = IG#) 0.01 x10 3/uL 0.00-0.03 N LYMPHOCYTE # (test code = LY#) 1.12 x10 3/uL 1.0-3.8 N MONOCYTE # (test code = MO#) 0.40 x10 3/uL 0.1-0.8 N EOSINOPHIL # (test code = EO#) 0.14 x10 3/uL 0.0-0.2 N BASOPHIL # (test code = BA#) 0.04 x10 3/uL 0.0-0.2 N NUCLEATED RBC # (test code = NRBC#) 0.00 x10 3/uL 0.0-0.1 N MANUAL DIFF REQUIRED (test code = MDIFF) NO COMMENTS: Daily while on HeparinRENAL FUNCTION [id number] 07:29:00* Test Item Value Reference Range Interpretation Comments SODIUM (test code = NA) 139 mEq/L 134-147 N POTASSIUM (test code = K) 3.7 mEq/L 3.4-5.0 N CHLORIDE (test code = CL) 110 mEq/L 100-108 H CARBON DIOXIDE (test code = CO2) 24 mEq/L 21-33 ANION GAP (test code = GAP) 9 0-20 N GLUCOSE (test code = GLU) 91 mg/dL 70-110 BLOOD UREA NITROGEN (test code = BUN) 11 mg/dL 7-18 N GLOMERULAR FILTRATION RATE (test code = GFR) 252.6 105-110 H Units of measure = ml/min/1.73 m2 CREATININE (test code = CREAT) 0.4 mg/dL 0.6-1.3 L ALBUMIN (test code = ALB) 2.40 g/dL 3.4-5.0 L CALCIUM (test code = CA) 7.8 mg/dL 8.0-10.5 L PHOSPHOROUS (test code = PHOS) 1.9 mg/dL 2.5-4.9 L COMMENTS: Every 6 hours until anion gap </= 12 mEq/L, then every [id number] 07:29:00* Test Item Value Reference Range Interpretation Comments LIPASE (test code = LIP) 2066 IUnit/L 73-393 H COMMENTS: Every 6 hours until anion gap </= 12 mEq/L, then every [id number] 07:29:00* Test Item Value Reference Range Interpretation Comments MAGNESIUM (test code = MAG) 1.90 mg/dL 1.8-2.4 N COMMENTS: Every 6 hours until anion gap </= 12 mEq/L, then every [id number] 07:11:00* Test Item Value Reference Range Interpretation Comments GLUBED (test code = GLUBED) 134 MG/DL 70-110 H 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 at [facility] [id number] 07:10:00* Test Item Value Reference Range Interpretation Comments GLUBED (test code = GLUBED) 76 MG/DL 70-110 N 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 at [facility] [id number] 07:10:00* Test Item Value Reference Range Interpretation Comments GLUBED (test code = GLUBED) 83 MG/DL 70-110 N 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 at [facility] [id number] 07:09:00* Test Item Value Reference Range Interpretation Comments GLUBED (test code = GLUBED) 86 MG/DL 70-110 N 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 at [facility] [id number] 05:37:00* Test Item Value Reference Range Interpretation Comments GLUBED (test code = GLUBED) 87 MG/DL 70-110 N 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 at [facility] [id number] 05:37:00* Test Item Value Reference Range Interpretation Comments GLUBED (test code = GLUBED) 95 MG/DL 70-110 N 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 at [facility] [id number] 22:37:00* Test Item Value Reference Range Interpretation Comments GLUBED (test code = GLUBED) 99 MG/DL 70-110 N 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 at [facility] [id number] 22:37:00* Test Item Value Reference Range Interpretation Comments GLUBED (test code = GLUBED) 89 MG/DL 70-110 N 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 at [facility] [id number] 16:48:00* Test Item Value Reference Range Interpretation Comments GLUBED (test code = GLUBED) 146 MG/DL 70-110 H 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 at [facility] [id number] 14:56:00* Test Item Value Reference Range Interpretation Comments GLUBED (test code = GLUBED) 136 MG/DL 70-110 H 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 at [facility] [id number] 12:45:00* Test Item Value Reference Range Interpretation Comments GLUBED (test code = GLUBED) 156 MG/DL 70-110 H 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 at [facility] [id number] 12:45:00* Test Item Value Reference Range Interpretation Comments GLUBED (test code = GLUBED) 161 MG/DL 70-110 H 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 at [facility] CBC W/AUTO [id number] 11:17:00* Test Item Value Reference Range Interpretation Comments WHITE BLOOD CELL (test code = WBC) 3.80 x10 3/uL 4.5-11.0 L RED BLOOD CELL (test code = RBC) 6.20 x10 6/uL 4.00-5.60 H HEMOGLOBIN (test code = HGB) 16.8 g/dL 12.5-16.9 N HEMATOCRIT (test code = HCT) 50.8 % 37.5-50.7 H MEAN CELL VOLUME (test code = MCV) 81.9 fL 81.0-99.0 N MEAN CELL HGB (test code = MCH) 27.1 pg 27.0-33.0 N MEAN CELL HGB CONCETRATION (test code = MCHC) 33.1 g/dL 33.0-37. 0 N RED CELL DISTRIBUTION WIDTH CV (test code = RDW) 13.7 % 11.5- 14.5 N RED CELL DISTRIBUTION WIDTH SD (test code = RDW-SD) 40.2 fL 37 .0-54.0 N PLATELET COUNT (test code = PLT) 180 x10 3/uL 150-400 N MEAN PLATELET VOLUME (test code = MPV) 12.8 fL 7.0-9.0 H NEUTROPHIL % (test code = NT%) 68.7 % 56.0-77.0 N IMMATURE GRANULOCYTE % (test code = IG%) 0.5 % 0.0-2.0 N LYMPHOCYTE % (test code = LY%) 23.9 % 14.0-32.0 N MONOCYTE % (test code = MO%) 6.1 % 4.8-9.0 N EOSINOPHIL % (test code = EO%) 0.3 % 0.3-3.7 N BASOPHIL % (test code = BA%) 0.5 % 0.0-2.0 N NUCLEATED RBC % (test code = NRBC%) 0.0 % 0-0 N NEUTROPHIL # (test code = NT#) 2.61 x10 3/uL 2.0-7.6 N IMMATURE GRANULOCYTE # (test code = IG#) 0.02 x10 3/uL 0.00-0.03 N LYMPHOCYTE # (test code = LY#) 0.91 x10 3/uL 1.0-3.8 L MONOCYTE # (test code = MO#) 0.23 x10 3/uL 0.1-0.8 N EOSINOPHIL # (test code = EO#) 0.01 x10 3/uL 0.0-0.2 N BASOPHIL # (test code = BA#) 0.02 x10 3/uL 0.0-0.2 N NUCLEATED RBC # (test code = NRBC#) 0.00 x10 3/uL 0.0-0.1 N MANUAL DIFF REQUIRED (test code = MDIFF) NO SLIDE REVIEWED, CONSISTENT WITH AUTO DIFF. HGBA1C%2018-07-21 10:24:00* Test Item Value Reference Range Interpretation Comments HGBA1C% (test code = HGBA1C%) 11.3 %A1C 4.8-6.0 H COMPREHENSIVE METABOLIC [id number] 09:12:00* Test Item Value Reference Range Interpretation Comments SODIUM (test code = NA) 139 mEq/L 134-147 N POTASSIUM (test code = K) 3.9 mEq/L 3.4-5.0 N SA MPLE IS LIPEMICPreviously reported result: 3.9 mEq/LEdited by: [facility] 07/21/18:743889/11/03 0902: K previously reported as: 3.9 mEq/L CHLORIDE (test code = CL) 110 mEq/L 100-108 H CARBON DIOXIDE (test code = CO2) 18 mEq/L 21-33 L ANION GAP (test code = GAP) 15 0-20 N GLUCOSE (test code = GLU) 183 mg/dL 70-110 H BLOOD UREA NITROGEN (test code = BUN) 13 mg/dL 7-18 N GLOMERULAR FILTRATION RATE (test code = GFR) 158.2 105-110 H Units of measure = ml/min/1.73 m2 CREATININE (test code = CREAT) 0.6 mg/dL 0.6-1.3 TOTAL PROTEIN (test code = PROT) 6.0 g/dL 6.4-8.2 L ALBUMIN (test code = ALB) 2.70 g/dL 3.4-5.0 L CALCIUM (test code = CA) 7.2 mg/dL 8.0-10.5 L BILIRUBIN TOTAL (test code = BILT) 0.60 mg/dL 0.0-1.0 N SGOT/AST (test code = AST) 36 IUnit/L 15-37 SGPT/ALT (test code = ALT) 16 IUnit/L 15-65 N ALKALINE PHOSPHATASE TOTAL (test code = ALKP) 77 IUnit/L 20-125 N COMMENTS: Every 6 hours until anion gap </= 12 mEq/L, then every morningLIPID PROFILE (CORONARY RISK)2018-07-21 09:12:00* Test Item Value Reference Range Interpretation Comments TRIGLYCERIDES (test code = TRIG) 651 mg/dL 40-150 H CHOLESTEROL (test code = CHOL) 250 mg/dL <200 H CHOLESTEROL/HDL RATIO (test code = CHOLHDL) 7.35 RATIO 3.43-4.97 H RISK ASSOCIATED WITH CHOL/HDL RATIOS: RISK MALE FEMALE1/2 AVERAGE 3.43 3.27AVERAGE 4.97 4.442X AVERAGE 9.55 7.053X AVERAGE 23.39 11.04 NOTE THAT THE REFERENCE VALUE IS RELATEDTO RISK LEVELS RECOMMENDED BY THE NATL.HEART, LUNG, AND BLOOD INST. HDL CHOLESTEROL (test code = HDL) 34.0 mg/dL 32-72 N LIPOPROTEIN LDL (test code = LDL) 49 mg/dL 0-100 N <100 [id number] NEAR OPTIMAL/ABOVE [id number] HIGH>ZL=037 VERY HIGH*Guidelines provided by the National Cholesterol EducationProgram Adult Treatment Panel III COMMENTS: Every 6 hours until anion gap </= 12 mEq/L, then every [id number] 09:12:00* Test Item Value Reference Range Interpretation Comments PHOSPHOROUS (test code = PHOS) 2.7 mg/dL 2.5-4.9 N COMMENTS: Every 6 hours until anion gap </= 12 mEq/L, then every [id number] 09:12:00* Test Item Value Reference Range Interpretation Comments LIPASE (test code = LIP) 4918 IUnit/L 73-393 H COMMENTS: Every 6 hours until anion gap </= 12 mEq/L, then every [id number] 09:12:00* Test Item Value Reference Range Interpretation Comments MAGNESIUM (test code = MAG) 2.20 mg/dL 1.8-2.4 COMMENTS: Every 6 hours until anion gap </= 12 mEq/L, then every morningCOMPREHENSIVE METABOLIC [id number] 09:02:00* Test Item Value Reference Range Interpretation Comments SODIUM (test code = NA) 139 mEq/L 134-147 N POTASSIUM (test code = K) 3.9 mEq/L 3.4-5.0 N CHLORIDE (test code = CL) 110 mEq/L 100-108 H CARBON DIOXIDE (test code = CO2) 18 mEq/L 21-33 L ANION GAP (test code = GAP) 15 0-20 N GLUCOSE (test code = GLU) 183 mg/dL 70-110 H BLOOD UREA NITROGEN (test code = BUN) 13 mg/dL 7-18 N GLOMERULAR FILTRATION RATE (test code = GFR) 158.2 105-110 H Units of measure = ml/min/1.73 m2 CREATININE (test code = CREAT) 0.6 mg/dL 0.6-1.3 TOTAL PROTEIN (test code = PROT) 6.0 g/dL 6.4-8.2 L ALBUMIN (test code = ALB) 2.70 g/dL 3.4-5.0 L CALCIUM (test code = CA) 7.2 mg/dL 8.0-10.5 L BILIRUBIN TOTAL (test code = BILT) 0.60 mg/dL 0.0-1.0 N SGOT/AST (test code = AST) 36 IUnit/L 15-37 SGPT/ALT (test code = ALT) 16 IUnit/L 15-65 N ALKALINE PHOSPHATASE TOTAL (test code = ALKP) 77 IUnit/L 20-125 N COMMENTS: Every 6 hours until anion gap </= 12 mEq/L, then every morningLIPID PROFILE (CORONARY RISK)2018-07-21 09:02:00* Test Item Value Reference Range Interpretation Comments TRIGLYCERIDES (test code = TRIG) 651 mg/dL 40-150 H CHOLESTEROL (test code = CHOL) 250 mg/dL <200 H CHOLESTEROL/HDL RATIO (test code = CHOLHDL) 7.35 RATIO 3.43-4.97 H RISK ASSOCIATED WITH CHOL/HDL RATIOS: RISK MALE FEMALE1/2 AVERAGE 3.43 3.27AVERAGE 4.97 4.442X AVERAGE 9.55 7.053X AVERAGE 23.39 11.04 NOTE THAT THE REFERENCE VALUE IS RELATEDTO RISK LEVELS RECOMMENDED BY THE NATL.HEART, LUNG, AND BLOOD INST. HDL CHOLESTEROL (test code = HDL) 34.0 mg/dL 32-72 N LIPOPROTEIN LDL (test code = LDL) 49 mg/dL 0-100 N <100 [id number] NEAR OPTIMAL/ABOVE [id number] [id number] HIGH>BJ=344 VERY HIGH*Guidelines provided by the National Cholesterol EducationProgram Adult Treatment Panel III COMMENTS: Every 6 hours until anion gap </= 12 mEq/L, then every [id number] 09:02:00* Test Item Value Reference Range Interpretation Comments PHOSPHOROUS (test code = PHOS) 2.7 mg/dL 2.5-4.9 N COMMENTS: Every 6 hours until anion gap </= 12 mEq/L, then every [id number] 09:02:00* Test Item Value Reference Range Interpretation Comments LIPASE (test code = LIP) IUnit/L 73-393 COMMENTS: Every 6 hours until anion gap </= 12 mEq/L, then every [id number] 09:02:00* Test Item Value Reference Range Interpretation Comments MAGNESIUM (test code = MAG) 2.20 mg/dL 1.8-2.4 COMMENTS: Every 6 hours until anion gap </= 12 mEq/L, then every morningCOMPREHENSIVE METABOLIC [id number] 09:02:00* Test Item Value Reference Range Interpretation Comments SODIUM (test code = NA) 139 mEq/L 134-147 N POTASSIUM (test code = K) 3.9 mEq/L 3.4-5.0 N SA MPLE IS LIPEMICPreviously reported result: 3.9 mEq/LEdited by: [facility] on 07/21/18:492928/11/03 0902: K previously reported as: 3.9 mEq/L CHLORIDE (test code = CL) 110 mEq/L 100-108 H CARBON DIOXIDE (test code = CO2) 18 mEq/L 21-33 L ANION GAP (test code = GAP) 15 0-20 N GLUCOSE (test code = GLU) 183 mg/dL 70-110 H BLOOD UREA NITROGEN (test code = BUN) 13 mg/dL 7-18 N GLOMERULAR FILTRATION RATE (test code = GFR) 158.2 105-110 H Units of measure = ml/min/1.73 m2 CREATININE (test code = CREAT) 0.6 mg/dL 0.6-1.3 TOTAL PROTEIN (test code = PROT) 6.0 g/dL 6.4-8.2 L ALBUMIN (test code = ALB) 2.70 g/dL 3.4-5.0 L CALCIUM (test code = CA) 7.2 mg/dL 8.0-10.5 L BILIRUBIN TOTAL (test code = BILT) 0.60 mg/dL 0.0-1.0 N SGOT/AST (test code = AST) 36 IUnit/L 15-37 SGPT/ALT (test code = ALT) 16 IUnit/L 15-65 N ALKALINE PHOSPHATASE TOTAL (test code = ALKP) 77 IUnit/L 20-125 N COMMENTS: Every 6 hours until anion gap </= 12 mEq/L, then every morningLIPID PROFILE (CORONARY RISK)2018-07-21 09:02:00* Test Item Value Reference Range Interpretation Comments TRIGLYCERIDES (test code = TRIG) 651 mg/dL 40-150 H CHOLESTEROL (test code = CHOL) 250 mg/dL <200 H CHOLESTEROL/HDL RATIO (test code = CHOLHDL) 7.35 RATIO 3.43-4.97 H RISK ASSOCIATED WITH CHOL/HDL RATIOS: RISK MALE FEMALE1/2 AVERAGE 3.43 3.27AVERAGE 4.97 4.442X AVERAGE 9.55 7.053X AVERAGE 23.39 11.04 NOTE THAT THE REFERENCE VALUE IS RELATEDTO RISK LEVELS RECOMMENDED BY THE NATL.HEART, LUNG, AND BLOOD INST. HDL CHOLESTEROL (test code = HDL) 34.0 mg/dL 32-72 N LIPOPROTEIN LDL (test code = LDL) 49 mg/dL 0-100 N <100 [id number] NEAR OPTIMAL/ABOVE [id number] [id number] HIGH>SZ=075 VERY HIGH*Guidelines provided by the National Cholesterol EducationProgram Adult Treatment Panel III COMMENTS: Every 6 hours until anion gap </= 12 mEq/L, then every [id number] 09:02:00* Test Item Value Reference Range Interpretation Comments PHOSPHOROUS (test code = PHOS) 2.7 mg/dL 2.5-4.9 N COMMENTS: Every 6 hours until anion gap </= 12 mEq/L, then every [id number] 09:02:00* Test Item Value Reference Range Interpretation Comments LIPASE (test code = LIP) IUnit/L 73-393 COMMENTS: Every 6 hours until anion gap </= 12 mEq/L, then every mzpjlbxKOOJHNYLH7862-77-04 09:02:00* Test Item Value Reference Range Interpretation Comments MAGNESIUM (test code = MAG) 2.20 mg/dL 1.8-2.4 COMMENTS: Every 6 hours until anion gap </= 12 mEq/L, then every [id number] 08:37:00* Test Item Value Reference Range Interpretation Comments GLUBED (test code = GLUBED) 184 MG/DL 70-110 H 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 at [facility] [id number] 08:37:00* Test Item Value Reference Range Interpretation Comments GLUBED (test code = GLUBED) 191 MG/DL 70-110 H 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 at [facility] [id number] 08:37:00* Test Item Value Reference Range Interpretation Comments GLUBED (test code = GLUBED) 203 MG/DL 70-110 H 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 at [facility] [id number] 08:37:00* Test Item Value Reference Range Interpretation Comments GLUBED (test code = GLUBED) 211 MG/DL 70-110 H 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 at [facility] [id number] 08:26:00* Test Item Value Reference Range Interpretation Comments GLUBED (test code = GLUBED) 161 MG/DL 70-110 H 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 at [facility] CBC W/AUTO [id number] 07:17:00* Test Item Value Reference Range Interpretation Comments WHITE BLOOD CELL (test code = WBC) 3.80 x10 3/uL 4.5-11.0 L RED BLOOD CELL (test code = RBC) 6.20 x10 6/uL 4.00-5.60 H HEMOGLOBIN (test code = HGB) 16.8 g/dL 12.5-16.9 N HEMATOCRIT (test code = HCT) 50.8 % 37.5-50.7 H MEAN CELL VOLUME (test code = MCV) 81.9 fL 81.0-99.0 N MEAN CELL HGB (test code = MCH) 27.1 pg 27.0-33.0 N MEAN CELL HGB CONCETRATION (test code = MCHC) 33.1 g/dL 33.0-37. 0 N RED CELL DISTRIBUTION WIDTH CV (test code = RDW) 13.7 % 11.5- 14.5 N RED CELL DISTRIBUTION WIDTH SD (test code = RDW-SD) 40.2 fL 37 .0-54.0 N PLATELET COUNT (test code = PLT) 180 x10 3/uL 150-400 N MEAN PLATELET VOLUME (test code = MPV) 12.8 fL 7.0-9.0 H LYMPHOCYTE % (test code = LY%) % 14.0-32.0 MANUAL DIFF REQUIRED (test code = MDIFF) [id number] 06:25:00* Test Item Value Reference Range Interpretation Comments GLUBED (test code = GLUBED) 168 MG/DL 70-110 H 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 at [facility] [id number] 04:22:00* Test Item Value Reference Range Interpretation Comments GLUBED (test code = GLUBED) 155 MG/DL 70-110 H 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 at [facility] [id number] 04:22:00* Test Item Value Reference Range Interpretation Comments GLUBED (test code = GLUBED) 157 MG/DL 70-110 H 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 at [facility] RENAL FUNCTION [id number] 01:50:00* Test Item Value Reference Range Interpretation Comments SODIUM (test code = NA) 139 mEq/L 134-147 N POTASSIUM (test code = K) 4.3 mEq/L 3.4-5.0 CHLORIDE (test code = CL) 110 mEq/L 100-108 H CARBON DIOXIDE (test code = CO2) 15 mEq/L 21-33 L ANION GAP (test code = GAP) 18 0-20 N GLUCOSE (test code = GLU) 209 mg/dL 70-110 H BLOOD UREA NITROGEN (test code = BUN) 11 mg/dL 7-18 GLOMERULAR FILTRATION RATE (test code = GFR) 252.6 105-110 H Units of measure = ml/min/1.73 m2 CREATININE (test code = CREAT) 0.4 mg/dL 0.6-1.3 L ALBUMIN (test code = ALB) 2.80 g/dL 3.4-5.0 L CALCIUM (test code = CA) 6.5 mg/dL 8.0-10.5 L PHOSPHOROUS (test code = PHOS) 2.5 mg/dL 2.5-4.9 N COMMENTS: Every 6 hours until anion gap </= 12 mEq/L, then every morning [id number] 01:50:00* Test Item Value Reference Range Interpretation Comments MAGNESIUM (test code = MAG) 1.50 mg/dL 1.8-2.4 L COMMENTS: Every 6 hours until anion gap </= 12 mEq/L, then every morning [id number] 00:22:00* Test Item Value Reference Range Interpretation Comments GLUBED (test code = GLUBED) 187 MG/DL 70-110 H 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 at [facility] [id number] 00:22:00* Test Item Value Reference Range Interpretation Comments GLUBED (test code = GLUBED) 187 MG/DL 70-110 H 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 at [facility] [id number] 21:50:00* Test Item Value Reference Range Interpretation Comments TRIGLYCERIDES (test code = TRIG) 2770 mg/dL 40-150 H Lipemic sample, results may be affected. [id number] 21:34:00* Test Item Value Reference Range Interpretation Comments GLUBED (test code = GLUBED) 197 MG/DL 70-110 H 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 at [facility] - CT ABD PELVIS [id number] 19:28:00 Name: BAO ESQUIVEL [facility] : 1990 Age/S: 28 / M [address] [place] [address] Unit #: [id number] Loc: [place] [address] Phys: Sixto Amaya MD Acct: [id number] Dis Date: Status: ADM IN PHONE #: [phone] Exam Date: 07/20/2018 1845 FAX #: [phone] Reason: severe epig pain EXAMS: CPT CODE: [id number] CT ABD PELVIS W/CONT 70041 CT SCAN OF THE ABDOMEN AND PELVIS WITH CONTRAST: HISTORY: Severe acute epigastric pain COMPARISON EXAM(S): Previous abdominal CT scan of June 21, 2018 TECHNIQUE: Axial images were obtained of the abdomen and pelvis from the domes of the diaphragm to the symphysis pubis following intravenous injection of 100 ml's Isovue and oral administration of 10 ml's Gastrografin diluted with water. Coronal and sagittal reconstructions were generated. DOSE: CT imaging performed at this location utilizes radiation dose optimization technique which includes one or more of the followin) Automated exposure control; 2) Adjustment of the mA and/or kV according to patient's size; 3) Use of iterative reconstruction techniques. DLP (mGy- cm): 324 FINDINGS: Severe changes of pancreatitis have developed since June 21, 2018 with a very large amount of edema through the head of the pancreas and body of the pancreas with peripancreatic edema. This anterior pararenal space edema extends into the peritoneal space surrounding the mesenteric root, the distal stomach, and through the rosy hepatis and into the right perirenal space. No evidence of an organized fluid collection to suggest pseudocyst or abscess. Enhancement of the head and body the pancreas is heterogeneous. Again noted are extensive, large venous collaterals in the perigastric region secondary to chronic splenic vein thrombosis. The main portal vein appears patent. No evidence of portal venous thrombosis. The stomach is moderately fluid filled. There is evidence of some compression of the antrum secondary to the surrounding edema. The lung bases and pleural spaces are clear. No focal lesions in the liver, spleen, adrenal glands or kidneys. No evidence of bowel obstruction. The appendix is normal. No retroperit arzate or pelvic adenopathy. Bone windows show spondylolysis at L5 without spondylolisthesis. No suspicious skeletal lesions identifie d. IMPRESSION: 1. Severe changes of pancreatitis have d eveloped since June 21, 2018 without evidence of dominant pseudocyst or abscess. 2. Abnormal enhancement pattern in the head and body the pa ncreas. PAGE 1 Signed Report (CONT INUED) Name: BAO ESQUIVEL [facility] : 1990 Age/S: 28 / M [address] [place] [address] Blvd Unit #: [id number] Loc: [place] [address] Phys: Sixto Magana MD Acct: [id number] Dis Date: Status: ADM IN [facility] NE #: [phone] Exam Date: 07/20/2018 1849 FAX #: Reason: severe epig pain EXAM S: CPT CODE: [id number] CT ABD PELVIS W/CONT 13822 <Continued> 3. 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 4. Fluid-filled stomach with the perigastric edema compressing the antral portion of the stomach. 5. Normal appendix. 6. No evidence of free air. 7. L5 spon dylolysis. SL:01 at 1928 Reported and signed by: Sammy capellan M.D. CC: Sixto Amaya MD Technologist:Enrique Tamayo, RT(R) CTDI: DLP: Trnscb Date/Time: 07/20/2018 (1927) RikiAJJ Orig Print D/T: S: 07/20/2018 (1930) CTDI: DLP: PAGE 2 Signed Report COMPREHENSIVE METABOLIC [id number] 19:05:00* Test Item Value Reference Range Interpretation Comments SODIUM (test code = NA) 133 mEq/L 134-147 L POTASSIUM (test code = K) 6.3 mEq/L 3.4-5.0 HH SP ECIMEN 2+ HEMOLYZED.Results known to be adversely affected by hemolysis are: Potassium Magnesium LDH PhosphorusRECOLLECTED SAMPLE CHLORIDE (test code = CL) 103 mEq/L 100-108 N CARBON DIOXIDE (test code = CO2) 9 mEq/L 21-33 L ANION GAP (test code = GAP) 27 0-20 H GLUCOSE (test code = GLU) 264 mg/dL 70-110 H BLOOD UREA NITROGEN (test code = BUN) 16 mg/dL 7-18 N GLOMERULAR FILTRATION RATE (test code = GFR) 158.2 105-110 H Units of measure = ml/min/1.73 m2 CREATININE (test code = CREAT) 0.6 mg/dL 0.6-1.3 N TOTAL PROTEIN (test code = PROT) 7.7 g/dL 6.4-8.2 N ALBUMIN (test code = ALB) 3.50 g/dL 3.4-5.0 N CALCIUM (test code = CA) 7.0 mg/dL 8.0-10.5 L BILIRUBIN TOTAL (test code = BILT) 0.50 mg/dL 0.0-1.0 N SGOT/AST (test code = AST) 114 IUnit/L 15-37 H SGPT/ALT (test code = ALT) 30 IUnit/L 15-65 N ALKALINE PHOSPHATASE TOTAL (test code = ALKP) 121 IUnit/L 20-125 N NEW [id number] 19:05:00* Test Item Value Reference Range Interpretation Comments LIPASE (test code = LIP) 41174 IUnit/L 73-393 H Li pemic sample, results may be affected. NEW [id number] 19:05:00* Test Item Value Reference Range Interpretation Comments MAGNESIUM (test code = MAG) 1.80 mg/dL 1.8-2.4 N NEW ORDERCOMPREHENSIVE METABOLIC [id number] 18:28:00* Test Item Value Reference Range Interpretation Comments SODIUM (test code = NA) 133 mEq/L 134-147 L POTASSIUM (test code = K) 6.3 mEq/L 3.4-5.0 HH SP ECIMEN 2+ HEMOLYZED.Results known to be adversely affected by hemolysis are: Potassium Magnesium LDH PhosphorusRECOLLECTED SAMPLE CHLORIDE (test code = CL) 103 mEq/L 100-108 N CARBON DIOXIDE (test code = CO2) 9 mEq/L 21-33 L ANION GAP (test code = GAP) 27 0-20 H GLUCOSE (test code = GLU) 264 mg/dL 70-110 H BLOOD UREA NITROGEN (test code = BUN) 16 mg/dL 7-18 N GLOMERULAR FILTRATION RATE (test code = GFR) 158.2 105-110 H Units of measure = ml/min/1.73 m2 CREATININE (test code = CREAT) 0.6 mg/dL 0.6-1.3 N TOTAL PROTEIN (test code = PROT) 7.7 g/dL 6.4-8.2 N ALBUMIN (test code = ALB) 3.50 g/dL 3.4-5.0 N CALCIUM (test code = CA) 7.0 mg/dL 8.0-10.5 L BILIRUBIN TOTAL (test code = BILT) 0.50 mg/dL 0.0-1.0 N SGOT/AST (test code = AST) 114 IUnit/L 15-37 H SGPT/ALT (test code = ALT) 30 IUnit/L 15-65 N ALKALINE PHOSPHATASE TOTAL (test code = ALKP) 121 IUnit/L 20-125 N NEW [id number] 18:28:00* Test Item Value Reference Range Interpretation Comments LIPASE (test code = LIP) IUnit/L 73-393 NEW [id number] 18:28:00* Test Item Value Reference Range Interpretation Comments MAGNESIUM (test code = MAG) 1.80 mg/dL 1.8-2.4 N NEW ORDERCOMPREHENSIVE METABOLIC [id number] 18:02:00* Test Item Value Reference Range Interpretation Comments SODIUM (test code = NA) 133 mEq/L 134-147 L POTASSIUM (test code = K) 6.3 mEq/L 3.4-5.0 HH SP ECIMEN 2+ HEMOLYZED.Results known to be adversely affected by hemolysis are: Potassium Magnesium LDH PhosphorusRECOLLECTED SAMPLE CHLORIDE (test code = CL) 103 mEq/L 100-108 N CARBON DIOXIDE (test code = CO2) 9 mEq/L 21-33 L ANION GAP (test code = GAP) 27 0-20 H GLUCOSE (test code = GLU) 264 mg/dL 70-110 H BLOOD UREA NITROGEN (test code = BUN) 16 mg/dL 7-18 N GLOMERULAR FILTRATION RATE (test code = GFR) 158.2 105-110 H Units of measure = ml/min/1.73 m2 CREATININE (test code = CREAT) 0.6 mg/dL 0.6-1.3 N TOTAL PROTEIN (test code = PROT) 7.7 g/dL 6.4-8.2 N ALBUMIN (test code = ALB) 3.50 g/dL 3.4-5.0 N CALCIUM (test code = CA) 7.0 mg/dL 8.0-10.5 L BILIRUBIN TOTAL (test code = BILT) 0.50 mg/dL 0.0-1.0 N SGOT/AST (test code = AST) IUnit/L 15-37 SGPT/ALT (test code = ALT) IUnit/L 15-65 ALKALINE PHOSPHATASE TOTAL (test code = ALKP) 121 IUnit/L 20-125 N NEW [id number] 18:02:00* Test Item Value Reference Range Interpretation Comments LIPASE (test code = LIP) IUnit/L 73-393 NEW [id number] 18:02:00* Test Item Value Reference Range Interpretation Comments MAGNESIUM (test code = MAG) 1.80 mg/dL 1.8-2.4 N NEW [id number] 17:51:00* Test Item Value Reference Range Interpretation Comments GLUBED (test code = GLUBED) 242 MG/DL 70-110 H 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 at [facility] - XR CHEST 1 [id number] 17:31:00 FAX: Percy Diggs MD [phone] [place]: St: ADM FAX: Joan Suarez [phone] FAX: Sixto Lovelace MD [phone] Name: BAO ESQUIVEL [facility] : 1990 Age/S: 28/M [address] [place] [address] Unit #: [id number] Loc: [place] [address] Phys: Percy Larose MD Acct: [id number] Dis Date: Status: ADM IN ONE #: [phone] Exam Date: 07/20/2018 1724 FAX #: [phone] Reason: ACUTE PANCREATITIS EXAMS: CPT CODE: [id number] XR CHEST 1 V 83160 Patient: BAO ESQUIVEL. : 1990; Age: 28 years; Gender: Male. MR: [id number]. Ordering physician: Percy Larose MD. PORTABLE CHEST AP: HISTORY: Acute pancreatitis, diabetic ketoacidosis. COMPARISON: Chest x-ray 06/21/2018. FINDINGS: Portable fro ntal view of the chest was obtained. The lungs are clear bilaterally. The cardiomediastinal silhouette and pulmonary vasculature are unremarkable. T he partially visualized upper abdomen is unremarkable. I MPRESSION: No acute disease in the chest. SL: [id number] at 2952 Reported and signed by: Juwan Lynch M.D. CC: Percy Larose MD; Joan Vera; Sixto Amaya MD Technologist: Marci manrique, RT(R) Trnscrd Date/Time/By: 07/20/2018 (0 056) : By: [email or web address] Orig Print D/T: S: 07/20/2018 (0611) PAGE 1 Signed Report VENOUS BLOOD [id number] 16:35:00* Test Item Value Reference Range Interpretation Comments VENOUS BLOOD GAS PH (test code = PHV) 7.26 7.33-7.45 L VENOUS BLOOD GAS PCO2 (test code = PCO2V) 41 mmHg 43-47 L VENOUS BLOOD GAS PO2 (test code = PO2V) 48 mmHg 10-50 N VBG HCO3 (test code = HCO3V) 18.4 mmol/L 22-27 L VBG BASE EXCESS (test code = RITIKA) -9.0 mmol/L -4.0-4.0 L VENOUS BLOOD GAS O2 SAT. (test code = O2SATV) 79 % 60-80 N VENOUS BLOOD GAS DELIVERY (test code = DELV) Room Air 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 at [facility] VENOUS BLOOD GAS TEMP (test code = TEMPV) 98.0 F VENOUS BLOOD GAS SITE (test code = SITEV) Other VENOUS TCO2 (test code = TCO2V) 20 [id number] 15:49:00* Test Item Value Reference Range Interpretation Comments GLUCOSE (test code = GLU) 304 mg/dL 70-110 H [id number] 15:49:00* Test Item Value Reference Range Interpretation Comments LIPASE (test code = LIP) 65217 IUnit/L 73-393 H Li pemic sample, results may be affected. ACETONE [id number] 15:49:00* Test Item Value Reference Range Interpretation Comments ACETONE QUANT (test code = ACETN) SMALL - 20 mg/dL mg/dL NEG - <20 CBC W/AUTO [id number] 14:14:00* Test Item Value Reference Range Interpretation Comments WHITE BLOOD CELL (test code = WBC) 14.03 x10 3/uL 4.5-11.0 H RED BLOOD CELL (test code = RBC) 6.08 x10 6/uL 4.00-5.60 H HEMOGLOBIN (test code = HGB) 17.9 g/dL 12.5-16.9 H HEMATOCRIT (test code = HCT) 50.3 % 37.5-50.7 N MEAN CELL VOLUME (test code = MCV) 82.7 fL 81.0-99.0 N MEAN CELL HGB (test code = MCH) 29.4 pg 27.0-33.0 N MEAN CELL HGB CONCETRATION (test code = MCHC) 35.6 g/dL 33.0-37. 0 N RED CELL DISTRIBUTION WIDTH CV (test code = RDW) 13.2 % 11.5- 14.5 N RED CELL DISTRIBUTION WIDTH SD (test code = RDW-SD) 39.5 fL 37 .0-54.0 N PLATELET COUNT (test code = PLT) 239 x10 3/uL 150-400 N IMMATURE PLATELET FRACTION (test code = IPF) 13.3 % 0.9-11.2 H MEAN PLATELET VOLUME (test code = MPV) 13.4 fL 7.0-9.0 H NEUTROPHIL % (test code = NT%) 79.8 % 56.0-77.0 H IMMATURE GRANULOCYTE % (test code = IG%) 0.7 % 0.0-2.0 N LYMPHOCYTE % (test code = LY%) 13.0 % 14.0-32.0 L MONOCYTE % (test code = MO%) 5.3 % 4.8-9.0 N EOSINOPHIL % (test code = EO%) 0.6 % 0.3-3.7 N BASOPHIL % (test code = BA%) 0.6 % 0.0-2.0 N NUCLEATED RBC % (test code = NRBC%) 0.0 % 0-0 N NEUTROPHIL # (test code = NT#) 11.19 x10 3/uL 2.0-7.6 H IMMATURE GRANULOCYTE # (test code = IG#) 0.10 x10 3/uL 0.00-0.03 H LYMPHOCYTE # (test code = LY#) 1.83 x10 3/uL 1.0-3.8 N MONOCYTE # (test code = MO#) 0.74 x10 3/uL 0.1-0.8 N EOSINOPHIL # (test code = EO#) 0.09 x10 3/uL 0.0-0.2 N BASOPHIL # (test code = BA#) 0.08 x10 3/uL 0.0-0.2 N NUCLEATED RBC # (test code = NRBC#) 0.00 x10 3/uL 0.0-0.1 N MANUAL DIFF REQUIRED (test code = MDIFF) NO COMPREHENSIVE METABOLIC [id number] 14:05:00* Test Item Value Reference Range Interpretation Comments SODIUM (test code = NA) mEq/L 134-147 POTASSIUM (test code = K) mEq/L 3.4-5.0 CHLORIDE (test code = CL) mEq/L 100-108 CARBON DIOXIDE (test code = CO2) mEq/L 21-33 ANION GAP (test code = GAP) 0-20 GLUCOSE (test code = GLU) mg/dL 70-110 BLOOD UREA NITROGEN (test code = BUN) mg/dL 7-18 GLOMERULAR FILTRATION RATE (test code = GFR) 105-110 CREATININE (test code = CREAT) mg/dL 0.6-1.3 TOTAL PROTEIN (test code = PROT) g/dL 6.4-8.2 ALBUMIN (test code = ALB) g/dL 3.4-5.0 CALCIUM (test code = CA) mg/dL 8.0-10.5 BILIRUBIN TOTAL (test code = BILT) mg/dL 0.0-1.0 SGOT/AST (test code = AST) IUnit/L 15-37 SGPT/ALT (test code = ALT) IUnit/L 15-65 ALKALINE PHOSPHATASE TOTAL (test code = ALKP) IUnit/L 20-125 [id number] 14:05:00* Test Item Value Reference Range Interpretation Comments LIPASE (test code = LIP) IUnit/L 73-393 ACETONE [id number] 14:05:00* Test Item Value Reference Range Interpretation Comments ACETONE QUANT (test code = ACETN) SMALL - 20 mg/dL mg/dL NEG - <20 [id number] 17:24:00* Test Item Value Reference Range Interpretation Comments GLUBED (test code = GLUBED) 240 MG/DL 70-110 H 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 at [facility] [id number] 12:07:00* Test Item Value Reference Range Interpretation Comments GLUBED (test code = GLUBED) 133 MG/DL 70-110 H 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 at [facility] [id number] 09:08:00* Test Item Value Reference Range Interpretation Comments GLUBED (test code = GLUBED) 168 MG/DL 70-110 H 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 at [facility] AG [id number] 08:17:00* Test Item Value Reference Range Interpretation Comments AG CARCINOEMBRYONIC (test code = CEA) 1.0 NG/ML 0.0-5.0 N CA [id number] 08:17:00* Test Item Value Reference Range Interpretation Comments CA 19-9 (test code = CA19) 29 U/mL 0-35 R Kirondo Electrochemiluminescence Immunoassay(ECLIA)Values obtained with different assay methods or kits cannotbe used interchangeably. Results cannot be interpreted asabsolute evidence of the presence or absence of malignantdisease.Performed At: [facility] [id number] Kyle L MD Ph:[phone] BASIC METABOLIC [id number] 08:04:00* Test Item Value Reference Range Interpretation Comments SODIUM (test code = NA) 136 mEq/L 134-147 N POTASSIUM (test code = K) 3.6 mEq/L 3.4-5.0 N CHLORIDE (test code = CL) 103 mEq/L 100-108 N CARBON DIOXIDE (test code = CO2) 25 mEq/L 21-33 N ANION GAP (test code = GAP) 12 0-20 N GLUCOSE (test code = GLU) 160 mg/dL 70-110 H BLOOD UREA NITROGEN (test code = BUN) 8 mg/dL 7-18 GLOMERULAR FILTRATION RATE (test code = GFR) 352.0 105-110 H Units of measure = ml/min/1.73 m2 CREATININE (test code = CREAT) 0.3 mg/dL 0.6-1.3 L CALCIUM (test code = CA) 8.3 mg/dL 8.0-10.5 N [id number] 08:04:00* Test Item Value Reference Range Interpretation Comments LIPASE (test code = LIP) 1143 IUnit/L 73-393 H [id number] 07:52:00* Test Item Value Reference Range Interpretation Comments GLUBED (test code = GLUBED) 171 MG/DL 70-110 H 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 at [facility] [id number] 17:24:00* Test Item Value Reference Range Interpretation Comments GLUBED (test code = GLUBED) 176 MG/DL 70-110 H 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 at [facility] [id number] 16:12:00* Test Item Value Reference Range Interpretation Comments GLUBED (test code = GLUBED) 173 MG/DL 70-110 H 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 at [facility] [id number] 14:43:00* Test Item Value Reference Range Interpretation Comments HGBA1C% (test code = HGBA1C%) 10.3 %A1C 4.8-6.0 H T4 [id number] 14:43:00* Test Item Value Reference Range Interpretation Comments T4 FREE (test code = T4F) 1.0 ng/dL 0.77-1.61 N THYROID STIMULATING [id number] 14:43:00* Test Item Value Reference Range Interpretation Comments THYROID STIMULATING HORMONE (test code = TSH) 1.23 0.42-5.4 7 N Results in blake- International Units/mL [id number] 12:04:00* Test Item Value Reference Range Interpretation Comments GLUBED (test code = GLUBED) 186 MG/DL 70-110 H 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 at [facility] [id number] 10:25:00* Test Item Value Reference Range Interpretation Comments GLUBED (test code = GLUBED) 206 MG/DL 70-110 H 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 at [facility] COMPREHENSIVE METABOLIC [id number] 09:02:00* Test Item Value Reference Range Interpretation Comments SODIUM (test code = NA) 134 mEq/L 134-147 N POTASSIUM (test code = K) 4.4 mEq/L 3.4-5.0 N CHLORIDE (test code = CL) 105 mEq/L 100-108 N CARBON DIOXIDE (test code = CO2) 21 mEq/L 21-33 ANION GAP (test code = GAP) 12 0-20 N GLUCOSE (test code = GLU) 228 mg/dL 70-110 H BLOOD UREA NITROGEN (test code = BUN) 14 mg/dL 7-18 N GLOMERULAR FILTRATION RATE (test code = GFR) 158.2 105-110 H Units of measure = ml/min/1.73 m2 CREATININE (test code = CREAT) 0.6 mg/dL 0.6-1.3 N TOTAL PROTEIN (test code = PROT) 6.1 g/dL 6.4-8.2 L ALBUMIN (test code = ALB) 2.60 g/dL 3.4-5.0 L CALCIUM (test code = CA) 8.0 mg/dL 8.0-10.5 N BILIRUBIN TOTAL (test code = BILT) 1.00 mg/dL 0.0-1.0 N SGOT/AST (test code = AST) 23 IUnit/L 15-37 N SGPT/ALT (test code = ALT) 19 IUnit/L 15-65 N ALKALINE PHOSPHATASE TOTAL (test code = ALKP) 77 IUnit/L 20-125 N [id number] 09:02:00* Test Item Value Reference Range Interpretation Comments TRIGLYCERIDES (test code = TRIG) 506 mg/dL 40-150 H [id number] 09:02:00* Test Item Value Reference Range Interpretation Comments LIPASE (test code = LIP) 3424 IUnit/L 73-393 H AG [id number] 09:01:00* Test Item Value Reference Range Interpretation Comments AG CARCINOEMBRYONIC (test code = CEA) 1.0 NG/ML 0.0-5.0 N CA [id number] 09:01:00* Test Item Value Reference Range Interpretation Comments CA 19-9 (test code = CA19) CBC W/AUTO [id number] 07:38:00* Test Item Value Reference Range Interpretation Comments WHITE BLOOD CELL (test code = WBC) 4.99 x10 3/uL 4.5-11.0 RED BLOOD CELL (test code = RBC) 4.98 x10 6/uL 4.00-5.60 N HEMOGLOBIN (test code = HGB) 13.6 g/dL 12.5-16.9 HEMATOCRIT (test code = HCT) 42.2 % 37.5-50.7 N MEAN CELL VOLUME (test code = MCV) 84.7 fL 81.0-99.0 N MEAN CELL HGB (test code = MCH) 27.3 pg 27.0-33.0 N MEAN CELL HGB CONCETRATION (test code = MCHC) 32.2 g/dL 33.0-37. 0 L RED CELL DISTRIBUTION WIDTH CV (test code = RDW) 13.7 % 11.5- 14.5 N RED CELL DISTRIBUTION WIDTH SD (test code = RDW-SD) 42.1 fL 37 .0-54.0 N PLATELET COUNT (test code = PLT) 120 x10 3/uL 150-400 L IMMATURE PLATELET FRACTION (test code = IPF) 11.1 % 0.9-11.2 N MEAN PLATELET VOLUME (test code = MPV) 13.1 fL 7.0-9.0 H NEUTROPHIL % (test code = NT%) 67.0 % 56.0-77.0 N IMMATURE GRANULOCYTE % (test code = IG%) 0.4 % 0.0-2.0 N LYMPHOCYTE % (test code = LY%) 20.2 % 14.0-32.0 N MONOCYTE % (test code = MO%) 9.4 % 4.8-9.0 H EOSINOPHIL % (test code = EO%) 2.4 % 0.3-3.7 N BASOPHIL % (test code = BA%) 0.6 % 0.0-2.0 N NUCLEATED RBC % (test code = NRBC%) 0.0 % 0-0 N NEUTROPHIL # (test code = NT#) 3.34 x10 3/uL 2.0-7.6 N IMMATURE GRANULOCYTE # (test code = IG#) 0.02 x10 3/uL 0.00-0.03 N LYMPHOCYTE # (test code = LY#) 1.01 x10 3/uL 1.0-3.8 N MONOCYTE # (test code = MO#) 0.47 x10 3/uL 0.1-0.8 N EOSINOPHIL # (test code = EO#) 0.12 x10 3/uL 0.0-0.2 N BASOPHIL # (test code = BA#) 0.03 x10 3/uL 0.0-0.2 N NUCLEATED RBC # (test code = NRBC#) 0.00 x10 3/uL 0.0-0.1 N MANUAL DIFF REQUIRED (test code = MDIFF) NO [id number] 21:41:00* Test Item Value Reference Range Interpretation Comments GLUBED (test code = GLUBED) 259 MG/DL 70-110 H 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 at [facility] COMPREHENSIVE METABOLIC [id number] 15:36:00* Test Item Value Reference Range Interpretation Comments SODIUM (test code = NA) 133 mEq/L 134-147 L POTASSIUM (test code = K) 4.9 mEq/L 3.4-5.0 N CHLORIDE (test code = CL) 106 mEq/L 100-108 CARBON DIOXIDE (test code = CO2) 14 mEq/L 21-33 L ANION GAP (test code = GAP) 18 0-20 N GLUCOSE (test code = GLU) 282 mg/dL 70-110 H BLOOD UREA NITROGEN (test code = BUN) 14 mg/dL 7-18 N GLOMERULAR FILTRATION RATE (test code = GFR) 132.4 105-110 H Units of measure = ml/min/1.73 m2 CREATININE (test code = CREAT) 0.7 mg/dL 0.6-1.3 N TOTAL PROTEIN (test code = PROT) 7.3 g/dL 6.4-8.2 ALBUMIN (test code = ALB) 3.10 g/dL 3.4-5.0 L CALCIUM (test code = CA) 7.7 mg/dL 8.0-10.5 L BILIRUBIN TOTAL (test code = BILT) 1.00 mg/dL 0.0-1.0 SGOT/AST (test code = AST) 41 IUnit/L 15-37 H SGPT/ALT (test code = ALT) 29 IUnit/L 15-65 N ALKALINE PHOSPHATASE TOTAL (test code = ALKP) 96 IUnit/L 20-125 N [id number] 15:36:00* Test Item Value Reference Range Interpretation Comments LIPASE (test code = LIP) 4379 IUnit/L 73-393 H COMPREHENSIVE METABOLIC [id number] 15:21:00* Test Item Value Reference Range Interpretation Comments SODIUM (test code = NA) 133 mEq/L 134-147 L POTASSIUM (test code = K) 4.9 mEq/L 3.4-5.0 N CHLORIDE (test code = CL) 106 mEq/L 100-108 CARBON DIOXIDE (test code = CO2) 14 mEq/L 21-33 L ANION GAP (test code = GAP) 18 0-20 N GLUCOSE (test code = GLU) 282 mg/dL 70-110 H BLOOD UREA NITROGEN (test code = BUN) 14 mg/dL 7-18 N GLOMERULAR FILTRATION RATE (test code = GFR) 132.4 105-110 H Units of measure = ml/min/1.73 m2 CREATININE (test code = CREAT) 0.7 mg/dL 0.6-1.3 N TOTAL PROTEIN (test code = PROT) 7.3 g/dL 6.4-8.2 ALBUMIN (test code = ALB) 3.10 g/dL 3.4-5.0 L CALCIUM (test code = CA) 7.7 mg/dL 8.0-10.5 L BILIRUBIN TOTAL (test code = BILT) 1.00 mg/dL 0.0-1.0 SGOT/AST (test code = AST) 41 IUnit/L 15-37 H SGPT/ALT (test code = ALT) 29 IUnit/L 15-65 N ALKALINE PHOSPHATASE TOTAL (test code = ALKP) 96 IUnit/L 20-125 N [id number] 15:21:00* Test Item Value Reference Range Interpretation Comments LIPASE (test code = LIP) IUnit/L 73-393 COMPREHENSIVE METABOLIC [id number] 13:43:00* Test Item Value Reference Range Interpretation Comments SODIUM (test code = NA) mEq/L 134-147 POTASSIUM (test code = K) mEq/L 3.4-5.0 CHLORIDE (test code = CL) mEq/L 100-108 CARBON DIOXIDE (test code = CO2) mEq/L 21-33 ANION GAP (test code = GAP) 0-20 GLUCOSE (test code = GLU) mg/dL 70-110 BLOOD UREA NITROGEN (test code = BUN) mg/dL 7-18 GLOMERULAR FILTRATION RATE (test code = GFR) 105-110 CREATININE (test code = CREAT) mg/dL 0.6-1.3 TOTAL PROTEIN (test code = PROT) g/dL 6.4-8.2 ALBUMIN (test code = ALB) g/dL 3.4-5.0 CALCIUM (test code = CA) mg/dL 8.0-10.5 BILIRUBIN TOTAL (test code = BILT) mg/dL 0.0-1.0 SGOT/AST (test code = AST) IUnit/L 15-37 SGPT/ALT (test code = ALT) IUnit/L 15-65 ALKALINE PHOSPHATASE TOTAL (test code = ALKP) IUnit/L 20-125 [id number] 13:43:00* Test Item Value Reference Range Interpretation Comments LIPASE (test code = LIP) 1709 IUnit/L 73-393 H [id number] 11:59:00* Test Item Value Reference Range Interpretation Comments GLUBED (test code = GLUBED) 298 MG/DL 70-110 H 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 at [facility] - MRI ABDOMEN W W/O [id number] 08:21:00 FAX: Abhishek Daniel [phone] [place]: St: ADM Name: Marlene FLANNERYBAO [facility] : [birth year] Age/S: 28/M [address] [place] [address] Unit #: [id number] Loc: [address] [address] Phys: Abhishek Stevens MD Acct: [id number] Dis Date: Status: ADM IN PHONE #: [phone] Exam Date: 06/21/20182054 FAX #: [phone] Reason: PANCREATITIS EXAMS: CPT CODE: [id number] MRI ABDOMEN W W/O CONT 91593 PROCEDURE: MRI ABDOMEN WITH AND WI THOUT CONTRAST INDICATION: Pancreatitis COMPARISON: CT of 06/21/2018 TECHNIQUE: Pre-and postcontrast dynamic T1-weight ed gradient echo and T2-weighted sequences were acquired. IV CONTRAS T: 18 mL Dotarem FINDINGS: LIVER: Incompletely imaged on th is examination tailored for survey of the pancreas. Otherwise, normal mor phology and signal intensity. No mass lesions or pathologic enhancement. The intrahepatic portal venous system is patent. No biliary dilatation. GALLBLADDER: Normal. SPLEEN: Normal, 12 cm in length. PANCREAS: Marked peripancreatic edema extending into the mesenteric root and anterior pararenal space. Volume loss in the pancreatic body. There is a lesion within the distal body/tail of pancreas corresp onding to low-attenuation lesion by CT measuring approximately 2 x 2 x 1.5 cm. Heterogeneous moderate T2 hyperintensity and heterogeneous T1 hyperi ntensity precontrast. Within limitations due to motion artifact, the lesi on is predominantly T1 hypointense postcontrast with component of rim enha ncement corresponding to a thin T2 hypointense rim. The pancreas head and neck demonstrate normal enhancement. The main pancreatic duct is not lolis quately visualized in the setting of acute pancreatic edema, not grossly d ilated. 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 ADRENAL GLANDS: Normal. KIDNEYS: Normal. RETROPERITONEUM: N ormal. LYMPH NODES: No adenopathy. MARROW SIGNAL INT ENSITY: Normal. Additional comments: No free intraperitoneal fluid . PAGE 1 Signed Report (CONTINUED) FAX: Abhishek Daniel [phone] [place]: St: ADM--------- Name: BAO ESQUIVEL [facility] : [birth year] Age/S: 28/M [address] [place] [address] Unit #: [id number] Loc: [address] [address] Phys: Abhishek Stevens MD Acct: [id number] Dis Date: Status: ADM IN PHONE #: [phone] Exam Date: 06/21/20182054 FAX #: [phone] Reason: PANCREATITIS EXAMS: CPT CODE: [id number] MRI ABDOMEN W W/O CONT 07514 <Continued> IMPRESSION: 1. Acute pancreatitis with increased peripancreatic edema from CT performed earlier the same day. 2. 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 3. Lesion in the tail of pancreas corresponding to findings at CT with signal and enhancement characteristics compatible with hemorrhagic pseudocyst. Neoplasm not excluded. Suggest close imaging surveillance with CT in the setting of acute pancreatitis with follow-up MRI and endoscopic ultrasound as warranted for further evaluation. SL: ADILSON at 0821 Reported and signed by: Francesco aNth M.D. CC: Abhishek Stevens MD Technologist: Moises Jimenez RT(R)(CT) [facility] Date/Time/By: 06/22/2018 (0821) : By: Lucien.KWL Orig Print D/T: S: 06/22/2018 (8449) PAGE 2 Signed Report CBC W/AUTO [id number] 07:23:00* Test Item Value Reference Range Interpretation Comments WHITE BLOOD CELL (test code = WBC) 9.68 x10 3/uL 4.5-11.0 RED BLOOD CELL (test code = RBC) 6.06 x10 6/uL 4.00-5.60 H HEMOGLOBIN (test code = HGB) 17.4 g/dL 12.5-16.9 H HEMATOCRIT (test code = HCT) 50.0 % 37.5-50.7 N MEAN CELL VOLUME (test code = MCV) 82.5 fL 81.0-99.0 N MEAN CELL HGB (test code = MCH) 28.7 pg 27.0-33.0 N MEAN CELL HGB CONCETRATION (test code = MCHC) 34.8 g/dL 33.0-37. 0 N RED CELL DISTRIBUTION WIDTH CV (test code = RDW) 13.2 % 11.5- 14.5 N RED CELL DISTRIBUTION WIDTH SD (test code = RDW-SD) 39.0 fL 37 .0-54.0 N PLATELET COUNT (test code = PLT) 164 x10 3/uL 150-400 N IMMATURE PLATELET FRACTION (test code = IPF) 12.1 % 0.9-11.2 H MEAN PLATELET VOLUME (test code = MPV) 12.9 fL 7.0-9.0 H NEUTROPHIL % (test code = NT%) 83.6 % 56.0-77.0 H IMMATURE GRANULOCYTE % (test code = IG%) 0.4 % 0.0-2.0 N LYMPHOCYTE % (test code = LY%) 7.2 % 14.0-32.0 L MONOCYTE % (test code = MO%) 8.5 % 4.8-9.0 N EOSINOPHIL % (test code = EO%) 0.0 % 0.3-3.7 L BASOPHIL % (test code = BA%) 0.3 % 0.0-2.0 N NUCLEATED RBC % (test code = NRBC%) 0.0 % 0-0 N NEUTROPHIL # (test code = NT#) 8.09 x10 3/uL 2.0-7.6 H IMMATURE GRANULOCYTE # (test code = IG#) 0.04 x10 3/uL 0.00-0.03 H LYMPHOCYTE # (test code = LY#) 0.70 x10 3/uL 1.0-3.8 L MONOCYTE # (test code = MO#) 0.82 x10 3/uL 0.1-0.8 H EOSINOPHIL # (test code = EO#) 0.00 x10 3/uL 0.0-0.2 N BASOPHIL # (test code = BA#) 0.03 x10 3/uL 0.0-0.2 N NUCLEATED RBC # (test code = NRBC#) 0.00 x10 3/uL 0.0-0.1 N MANUAL DIFF REQUIRED (test code = MDIFF) NO [id number] 17:51:00* Test Item Value Reference Range Interpretation Comments GLUBED (test code = GLUBED) 221 MG/DL 70-110 H 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 at [facility] - CT ABD PELVIS [id number] 17:29:00 Name: BAO ESQUIVEL [facility] : 1990 Age/S: 28 / M [address] [place] [address] Unit #: [id number] Loc: [place] [address] Phys: RiverCallie DO Acct: [id number] Dis Date: Status: ADM IN PHONE #: [phone] Exam Date: 06/21/2018 1701 FAX #: [phone] Reason: abdominal pain EXAMS: CPT CODE: [id number] CT ABD PELVIS W/CONT 68068 Clinical Indication: Abdominal pain Comparison: CT abdomen pelvis October 22, 2017 TECHNIQUE: Helical imaging was performed after injection of IV contrast, from the lung base through the symphysis with multiplanar reformations obtained. IV CONTRAST: 100 mL of Isovue-300 GI CONTRAST: Oral contrast was administered. DLP: 646 mGy-cm FINDINGS: CT ABDOMEN AND PELVIS WITH CONTRAST: LUNG BASE: The lung bases are clear. LIVER: The liver parenchyma is normal in appearance without masses or intrahepatic biliary ductal dilatation. The portal vein is normal in caliber. BILIARY TREE: The common bile duct is normal in caliber without evidence of filling defects. GALLBLADDER: The gallbladder is unremarkable, there is no evidence of cholelithiasis or cholecystitis. PANCREAS: Ill defined hypodensities measuring up to 1.7 cm are seen in the tail of the pancreas. There is mild fat stranding around the pancreas. SPLEEN: The spleen is normal in size and there are no parenchymal abnormalities. ADRENALS: The right adrenal gland is unremarkable. The left adrenal gland is unremarkable. KIDNEYS: The kidneys demonstrates normal contrast enhancement. There are no masses. There is no evidence of renal or ureteral calculi. There is no evidence of hydronephrosis. BOWEL: The visualized portion of the esophagus is unremarkable. The stomach is unremarkable except for moderate tortuous vessels around the greater curvatures of the stomach. The small bowel is normal in caliber and there is no evidence of masses or obstruction. . The colon is normal in caliber without any masses. Dive rticulosis without PAGE 1 Signed Report (CONTINUED) Name: BAO ESQUIVEL [facility] : 1990 Age/S: 28 / M [address] [place] [address] Blvd Unit #: [id number] Loc: [place] [address] Phys: Callie Holman DO Acct: [id number] Dis Date: Status: ADM IN PHONE #: [phone] Exam Date: 06/21/2018 1701 FAX #: [phone] Reason: abdominal pain EXAMS: CPT CODE: [id number] ABD PELVIS W/CONT 47503 <Continued> evidence of diverticulitis is seen in the distal colon. AP PENDIX: The appendix is unremarkable. PELVIS: There are no pelvic masses. The urinary bladder is unremarkable. PERITONEUM: T here is no evidence for free intraperitoneal fluid or air. S OFT TISSUES: The soft tissues are unremarkable. There is no evidence of ma sses or hernias. LYMPH NODES: There is no evidence of mesenteric, retroperitoneal, or inguinal lymphadenopathy. VASCULATURE: T he abdominal aorta is normal in caliber. The branches of the abdominal aor ta are widely patent. 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 MUSCULOSKELETAL: The visualized bony skeleton is unremarkable. IMPRESSION: 1. Fat stranding around the pancreas. Correlate for possible pancreatitis. There are also hypodense lesions within the pancreatic tail. These are likely pancreatic infarction sec ondary to chronic thrombosed splenic vein. A pancreatic mass is also in the remote differential. Recommend a MR pancreatic protocol for further evaluation. 2. 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 3. Diverticulosis without evidence of diverticulitis in the distal colon. 4. Normal appendix. SL: [id number] at 172 9 Reported and signed by: Pepe Katz M.D. PAGE 2 Signed Report (CONTINUED) Name: Marlene FLANNERYBAO [facility] : [birth year] Age/S: 28 / M [address] [place] [address] Unit #: [id number] Loc: [place] [address] Phys: Callie Holman DO Acct: [id number] Dis Date: Status: ADM IN PHONE #: [phone] Exam Date: 06/21/2018 1701 FAX #: [phone] Reason: abdominal pain EXAMS: CPT CODE: [id number] CT ABD PELVIS W/CONT 17758 <Continued> CC: Callie Holman DO Technologist:Masha Anthony, RT(R) CTDI: DLP: Trnscb Date/Time: 06/21/2018 (1729) [email or web address] Orig Print D/T: S: 06/21/2018 (1735) CTDI: DLP: PAGE 3 Signed Report CBC W/AUTO [id number] 17:16:00 * Test Item Value Reference Range Interpretation Comments WHITE BLOOD CELL (test code = WBC) 13.1 K/uL 4.5-11.0 H RED BLOOD CELL (test code = RBC) 5.88 M/uL 4.00-5.60 H HEMOGLOBIN (test code = HGB) 16.2 GM/DL 12.5-16.9 N HEMATOCRIT (test code = HCT) 48.6 % 37.5-50.7 N MEAN CELL VOLUME (test code = MCV) 81.5 fL 81.0-99.0 N MEAN CELL HGB (test code = MCH) 27.2 pg 27.0-33.0 N MEAN CELL HGB CONCETRATION (test code = MCHC) 33.3 GM/DL 33.0-37. 0 N RED CELL DISTRIBUTION WIDTH CV (test code = RDW) 12.6 % 11.5- 14.5 N RED CELL DISTRIBUTION WIDTH SD (test code = RDW-SD) 36.6 % 37 .0-54.0 L PLATELET COUNT (test code = PLT) 211 x10 3/uL 150-400 N MEAN PLATELET VOLUME (test code = MPV) 12.5 FL 7.0-9.0 H NEUTROPHIL % (test code = NT%) 86.4 % 56.0-77.0 H IMMATURE GRANULOCYTE % (test code = IG%) 0.8 % 0.0-2.0 N LYMPHOCYTE % (test code = LY%) 7.9 % 14.0-32.0 L MONOCYTE % (test code = MO%) 4.3 % 4.8-9.0 L EOSINOPHIL % (test code = EO%) 0.1 % 0.3-3.7 L BASOPHIL % (test code = BA%) 0.5 % 0.0-2.0 N NUCLEATED RBC % (test code = NRBC%) 0.0 % 0-0 N NEUTROPHIL # (test code = NT#) 11.30 x10 3/uL 2.0-7.6 H IMMATURE GRANULOCYTE # (test code = IG#) 0.10 x10 3/uL 0.00-0.03 H LYMPHOCYTE # (test code = LY#) 1.03 x10 3/uL 1.0-3.8 N MONOCYTE # (test code = MO#) 0.56 x10 3/uL 0.1-0.8 N EOSINOPHIL # (test code = EO#) 0.01 x10 3/uL 0.0-0.2 N BASOPHIL # (test code = BA#) 0.06 x10 3/uL 0.0-0.2 N NUCLEATED RBC # (test code = NRBC#) 0.00 x10 3/uL 0.0-0.1 N MANUAL DIFF REQUIRED (test code = MDIFF) NO BASIC METABOLIC [id number] 16:24:00* Test Item Value Reference Range Interpretation Comments SODIUM (test code = NA) 127 mEq/L 134-147 L SAMP LE GROSSLY LIPEMIC POTASSIUM (test code = K) 4.5 mEq/L 3.4-5.0 N CHLORIDE (test code = CL) 94 mEq/L 100-108 L CARBON DIOXIDE (test code = CO2) 15 mEq/L 21-33 L ANION GAP (test code = GAP) 23 0-20 H GLUCOSE (test code = GLU) 370 mg/dL 70-110 H BLOOD UREA NITROGEN (test code = BUN) 18 mg/dL 7-18 N GLOMERULAR FILTRATION RATE (test code = GFR) 99.1 105-110 L Units of measure = ml/min/1.73 m2 CREATININE (test code = CREAT) 0.9 mg/dL 0.6-1.3 N CALCIUM (test code = CA) 8.3 mg/dL 8.0-10.5 N HEPATIC FUNCTION [id number] 16:24:00* Test Item Value Reference Range Interpretation Comments TOTAL PROTEIN (test code = PROT) 8.8 g/dL 6.4-8.2 H ALBUMIN (test code = ALB) 3.80 g/dL 3.4-5.0 N BILIRUBIN TOTAL (test code = BILT) 2.20 mg/dL 0.0-1.0 H BILIRUBIN DIRECT (test code = BILD) 0.30 MG/DL 0.0-0.30 BILIRUBIN INDIRECT (test code = BILIND) 1.90 MG/DL SGOT/AST (test code = AST) 46 IUnit/L 15-37 H SGPT/ALT (test code = ALT) 56 IUnit/L 15-65 N ALKALINE PHOSPHATASE TOTAL (test code = ALKP) 135 IUnit/L 20-125 H [id number] 16:24:00* Test Item Value Reference Range Interpretation Comments LIPASE (test code = LIP) 1671 IUnit/L 73-393 H [id number] 16:24:00* Test Item Value Reference Range Interpretation Comments TROPONIN-I (test code = TROPI) < 0.015 ng/mL 0.000-0.045 N Negative: <= 0.045 Positive: >= 0.046 Correlation with serial results, other cardiac markers andclinical findings is necessary to determine the clinicalsignificance of this result. Results using different methodologies should not be comparedto one another as quantitative results may vary by method. BASIC METABOLIC [id number] 16:21:00* Test Item Value Reference Range Interpretation Comments SODIUM (test code = NA) 127 mEq/L 134-147 L SAMP LE GROSSLY LIPEMIC POTASSIUM (test code = K) 4.5 mEq/L 3.4-5.0 N CHLORIDE (test code = CL) 94 mEq/L 100-108 L CARBON DIOXIDE (test code = CO2) 15 mEq/L 21-33 L ANION GAP (test code = GAP) 23 0-20 H GLUCOSE (test code = GLU) 370 mg/dL 70-110 H BLOOD UREA NITROGEN (test code = BUN) 18 mg/dL 7-18 N GLOMERULAR FILTRATION RATE (test code = GFR) 99.1 105-110 L Units of measure = ml/min/1.73 m2 CREATININE (test code = CREAT) 0.9 mg/dL 0.6-1.3 N CALCIUM (test code = CA) 8.3 mg/dL 8.0-10.5 N HEPATIC FUNCTION [id number] 16:21:00* Test Item Value Reference Range Interpretation Comments TOTAL PROTEIN (test code = PROT) 8.8 g/dL 6.4-8.2 H ALBUMIN (test code = ALB) 3.80 g/dL 3.4-5.0 N BILIRUBIN TOTAL (test code = BILT) 2.20 mg/dL 0.0-1.0 H BILIRUBIN DIRECT (test code = BILD) 0.30 MG/DL 0.0-0.30 BILIRUBIN INDIRECT (test code = BILIND) 1.90 MG/DL SGOT/AST (test code = AST) IUnit/L 15-37 SGPT/ALT (test code = ALT) IUnit/L 15-65 ALKALINE PHOSPHATASE TOTAL (test code = ALKP) 135 IUnit/L 20-125 H [id number] 16:21:00* Test Item Value Reference Range Interpretation Comments LIPASE (test code = LIP) 1671 IUnit/L 73-393 H [id number] 16:21:00* Test Item Value Reference Range Interpretation Comments TROPONIN-I (test code = TROPI) < 0.015 ng/mL 0.000-0.045 N Negative: <= 0.045 Positive: >= 0.046 Correlation with serial results, other cardiac markers andclinical findings is necessary to determine the clinicalsignificance of this result. Results using different methodologies should not be comparedto one another as quantitative results may vary by method. URINALYSIS [id number] 16:01:00* Test Item Value Reference Range Interpretation Comments UA COLOR (test code = COLU) YELLOW YEL/STRAW UA APPEARANCE (test code = APPU) SL CLOUDY CLEAR UA GLUCOSE DIPSTICK (test code = DGLUU) 3+ NEGATIVE A UA BILIRUBIN DIPSTICK (test code = BILU) NEGATIVE NEGATIVE UA KETONE DIPSTICK (test code = KETU) 2+ NEGATIVE A UA SPECIFIC GRAVITY (test code = SGU) 1.042 1.005-1.030 H UA BLOOD DIPSTICK (test code = REENA) NEGATIVE NEGATIVE UA PH DIPSTICK (test code = VITOR) 5.0 5.0-7.0 N UA PROTEIN DIPSTICK (test code = PROU) 1+ NEGATIVE A UA UROBILINIOGEN DIPSTICK (test code = URO) 0.2 mg/dL 0.2-1.0 UA NITRITE DIPSTICK (test code = OMAR) NEGATIVE NEGATIVE UA LEUKOCYTE ESTERASE DIPSTICK (test code = LEUU) NEGATIVE NEGA TIVE UA WBC (test code = WBCU) 0-3 WBC/HPF 0-3 UA RBC (test code = RBCU) 0-3 RBC/HPF 0-3 UA BACTERIA (test code = BACU) TRACE /HPF NONE SEEN UA SQUAMOUS CELLS (test code = SQU) 0-5 /HPF NONE SEEN UA HYALINE CAST (test code = HYALU) 0-2 /LPF NONE SEEN UA MUCUS (test code = MUCU) 2+ /LPF NONE SEEN A COMMENTS: Clean CatchBASIC METABOLIC [id number] 15:56:00* Test Item Value Reference Range Interpretation Comments SODIUM (test code = NA) 127 mEq/L 134-147 L SAMP LE GROSSLY LIPEMIC POTASSIUM (test code = K) 4.5 mEq/L 3.4-5.0 N CHLORIDE (test code = CL) 94 mEq/L 100-108 L CARBON DIOXIDE (test code = CO2) mEq/L 21-33 ANION GAP (test code = GAP) 0-20 GLUCOSE (test code = GLU) 370 mg/dL 70-110 H BLOOD UREA NITROGEN (test code = BUN) 18 mg/dL 7-18 N GLOMERULAR FILTRATION RATE (test code = GFR) 99.1 105-110 L Units of measure = ml/min/1.73 m2 CREATININE (test code = CREAT) 0.9 mg/dL 0.6-1.3 N CALCIUM (test code = CA) mg/dL 8.0-10.5 HEPATIC FUNCTION [id number] 15:56:00* Test Item Value Reference Range Interpretation Comments TOTAL PROTEIN (test code = PROT) 8.8 g/dL 6.4-8.2 H ALBUMIN (test code = ALB) 3.80 g/dL 3.4-5.0 N BILIRUBIN TOTAL (test code = BILT) 2.20 mg/dL 0.0-1.0 H BILIRUBIN DIRECT (test code = BILD) 0.30 MG/DL 0.0-0.30 BILIRUBIN INDIRECT (test code = BILIND) 1.90 MG/DL SGOT/AST (test code = AST) IUnit/L 15-37 SGPT/ALT (test code = ALT) IUnit/L 15-65 ALKALINE PHOSPHATASE TOTAL (test code = ALKP) 135 IUnit/L 20-125 H [id number] 15:56:00* Test Item Value Reference Range Interpretation Comments LIPASE (test code = LIP) 1671 IUnit/L 73-393 H [id number] 15:56:00* Test Item Value Reference Range Interpretation Comments TROPONIN-I (test code = TROPI) < 0.015 ng/mL 0.000-0.045 N Negative: <= 0.045 Positive: >= 0.046 Correlation with serial results, other cardiac markers andclinical findings is necessary to determine the clinicalsignificance of this result. Results using different methodologies should not be comparedto one another as quantitative results may vary by method. - XR CHEST 1 [id number] 11:44:00 FAX: Callie Recinos DO [phone] [place]: St: PRE Name: BAO NOLAN [facility] Fowler : [birth year] Age/S: 28/M [address] [place] [address] Blvd Unit #: [id number] Loc: [place] [address] Phys: RiverTrinhCallie DO Acct: [id number] Dis Date: Status: PRE ER PHONE #: [phone] Exam Date: 06/21/2018 1142 FAX #: [phone] Reason: Abdominal Pain EXAMS: CPT CODE: [id number] XR CHEST 1 V 81620 CHEST 1 VIEW: 06/21/2018 COMPARISON: June 01, 2018 CLINICAL HISTORY: Abdominal Pain FINDINGS: The cardiovascular silhouette is normal in size. No infiltrates or pulmonary edema is present. No pleural e ffusions are seen. IMPRESSION: No acute pulmo nary disease. 19 at 1144 Reported and signed by: Carlos Fernandez M.D. CC: Callie Holman DO Technologist: RT Mary(R) Trnscrd Alice ate/Time/By: 06/21/2018 (1868) : By: [email or web address] Orig Print D/T: S: 08/2018 (8557) PAGE 1 Signed Repor sara
[2020-02-21] MEDS: HYDROMORPHONE 1MG/1ML INJ IV PRN ×4 (10:19→22:55)
--- NOTE | 2020-02-21 10:22 | NUR ---
AWAITING INSULIN GTT FROM PHARMACY. PENDING ICU BED.
--- NOTE | 2020-02-21 10:22 | NUR ---
BGL 200
[2020-02-21] MEDS: INSULIN REGULAR, HUMAN 3ML VL 100 UNIT in SODIUM CHLORIDE 0.9% 99 ML IV SCH ×6 (10:33→23:54)
[2020-02-21] MEDS: DEXTROSE 5%/0.45% SOD CHL 1,000 ML IV SCH ×2 (10:34→17:21)
--- NOTE | 2020-02-21 10:47 | NUR ---
INSULIN GTT STARTED TO RIGHT HAND D5 0.45% NS STARTED TO RIGHT AC NS BOLUS TO L AC
[2020-02-21] MEDS: SODIUM CHLORIDE 0.9% 1000ML 1,000 ML IV SCH ×2 (12:18→13:00)
[2020-02-21 12:26] LABS: ANION GAP 14.5 mmol/L (8-16); BLOOD UREA NITROGEN 13 mg/dL (7-26); BUN/CREATININE RATIO 20 (6-25); CALCIUM 7.7 mg/dL (8.4-10.2); CARBON DIOXIDE 20 mmol/L (22-29); CHLORIDE 105 mmol/L (98-107); CREATININE, SERUM 0.64 mg/dL (0.72-1.25); EST GLOMERULAR FILTRATION RATE > 60 ML/MIN (60-); GLUCOSE 175 mg/dL (74-118); MAGNESIUM 1.4 MG/DL (1.3-2.1); POTASSIUM 3.5 mmol/L (3.5-5.1); SODIUM 136 mmol/L (136-145)
[2020-02-21 12:48] LABS: CHOL/HDL RATIO 19.1 (3.9-4.7); CHOLESTEROL 420 MD/DL (0-199); HDL CHOLESTEROL 22 MG/DL (40-60)
[2020-02-21 13:05] LABS: TRIGLYCERIDES 1946 MG/DL (0-149)
[2020-02-21] MEDS ORDERED: KETOROLAC TROMETHAMINE 30 MG/ML VIAL IV ONE (14:30)
--- NOTE | 2020-02-21 14:32 | NUR ---
H&P Chief Complaint - Abdominal pain, nausea History of Present Illness Mr Smith is a 30 yo M with PMH of chronic pancreatitis 2/2 familial hypertriglyceridemia, and DM (unspecified type) who presented with generalized abdominal pain, found to be in DKA and acute hypertriglyceridemia pancreatitis. Patient states he was compliant with his home insulin regimen (long acting 30u qam, premeal 15-20u TID) and his HLD medications fenofibrate and atorvastatin. However he has had multiple admissions in the past for pancreatitis and 1 other admission for DKA. Anion gap in ED 28, lipase 240, TG 3400, with ketones in his urine. Started on insulin drip and admitted to MICU. Review of Systems General: +fatigue; No fever, chills HEENT: Denies visual changes, hearing loss, congestion, rhinorrhea, or bleeding Respiratory: No SOB, cough, or hemoptysis Cardiovascular: No chest pain, palpitations, LOPEZ, orthopnea, PND, leg edema, or claudication Gastrointestinal: +abdominal pain, +nausea; No vomiting, diarrhea, constipation G/U: Denies dysuria, hematuria, incontinence, or discharge Musculoskeletal: No myalgias or arthralgias Neurological: No syncope, seizures, headaches, changes in sensation, or weakness Hematology: No bruising, bleeding, or lymphadenopathy Endocrine: No heat or cold intolerance, hair loss, or weight changes Skin: No rashes, sores, itching, bruising Psychiatric: Denies depression or elevated mood, or anxiety Past Medical History - Unspecified DM - familial hypertriglyceridemia - Chronic pancreatitis Past Surgical History None Family History T2DM in father Social History Denies alcohol, tobacco, or drug use; exercises once and sometimes twice daily Allergies - Meperidine Physical Exam Vitals: Temp: 97.9P: 90BP: 130/71RR: 21SpO2 99% General Appearance: The patient is alert, oriented and in no acute distress. Appears euvolemic. Skin: Warm and hydrated without any rash. HEENT: Head is normocephalic, atraumatic. Nontender sinuses. Pupils are equal and reactive. The nares are patent. Oropharynx is moist and clear without lesions. Neck: Supple without lymphadenopathy. No JVD. Thyroid NV/[employer] Heart / Cardiovascular: Regular rate and rhythm. Normal S1 and S2 without S3/S4. No murmurs, rubs or gallops. Peripheral pulses symmetric +2. Respiratory / Chest: No crackles or wheezes are heard. Symmetric breath sounds. Preserved chest expansion. Abdomen: Soft, +mild tenderness to palpation of epigastrum, nondistended with good bowel sounds heard. No clinical organomegaly. Renal: There is no costovertebral angle tenderness. Extremities: Without cyanosis, clubbing or edema. Preserved ROM. Neurological: Gross nonfocal. Patient oriented x 3. Cranial nerves II - 12 Grossly intact. DTRs +2. MS: 5/5 globally. Assessment/Plan 30 yo M w/ hx of recurrent pancreatitis, DM, and familial hyperTG who presented with hypertriglyceridemia pancreatitis and DKA, being managed on insulin drip in ICU. #Diabetic Ketoacidosis #DM, unspecified - DKA insulin protocol started - A1c 13, indicating poor outpatient glucose control; will have patient follow-up in my clinic and adjust his insulin - Gap 28 on admission, improving; however will have to continue insulin once gap is closed (see hyperTG below) - ketones pending #Hypertriglyceridemia pancreatitis #Familial hypertriglyceridemia - TG 3400 on admission, need to trend TG level Q12h; goal to have TG under 1000 for pancreatitis to improve - Lipase 240 - once DKA protocol completed, will still need to keep insulin at fixed rate (0.1u/kg/hr) along with D5-1/2NS to keep euglycemic - on discharge, will restart fenofibrate and atorvastatin Timi Merrill MD Internal Medicine
[2020-02-21 16:34] LABS: ANION GAP 12.9 mmol/L (8-16); BLOOD UREA NITROGEN 12 mg/dL (7-26); BUN/CREATININE RATIO 19 (6-25); CALCIUM 7.7 mg/dL (8.4-10.2); CARBON DIOXIDE 20 mmol/L (22-29); CHLORIDE 107 mmol/L (98-107); CREATININE, SERUM 0.63 mg/dL (0.72-1.25); EST GLOMERULAR FILTRATION RATE > 60 ML/MIN (60-); GLUCOSE 121 mg/dL (74-118); MAGNESIUM 1.7 MG/DL (1.3-2.1); POTASSIUM 3.9 mmol/L (3.5-5.1); SODIUM 136 mmol/L (136-145)
[2020-02-21] MEDS ORDERED: POTASSIUM CHLORIDE 10MEQ/100ML 200 ML IV ONE (17:15)
[2020-02-21 21:05] LABS: ANION GAP 14.8 mmol/L (8-16); BLOOD UREA NITROGEN 12 mg/dL (7-26); BUN/CREATININE RATIO 18 (6-25); CALCIUM 7.9 mg/dL (8.4-10.2); CARBON DIOXIDE 21 mmol/L (22-29); CHLORIDE 105 mmol/L (98-107); CREATININE, SERUM 0.66 mg/dL (0.72-1.25); EST GLOMERULAR FILTRATION RATE > 60 ML/MIN (60-); GLUCOSE 96 mg/dL (74-118); MAGNESIUM 1.6 MG/DL (1.3-2.1); POTASSIUM 3.8 mmol/L (3.5-5.1); SODIUM 137 mmol/L (136-145)
--- NOTE | 2020-02-21 23:14 | NUR ---
Dr Timi Merrill called and gave orders, give pt 5 units/hr insulin drip and runs Dex 5 1/2 NS at 250ml/hr and re check blood sugar again in an hour. also add Lactic acid and serum ketones to lab orders.
[2020-02-22] VITALS (13 sets, daily range): BP systolic 93–114; BP diastolic 55–74
[2020-02-22 01:46] LABS: ANION GAP 12.7 mmol/L (8-16); BLOOD UREA NITROGEN 11 mg/dL (7-26); BUN/CREATININE RATIO 17 (6-25); CALCIUM 7.6 mg/dL (8.4-10.2); CARBON DIOXIDE 21 mmol/L (22-29); CHLORIDE 106 mmol/L (98-107); CREATININE, SERUM 0.64 mg/dL (0.72-1.25); EST GLOMERULAR FILTRATION RATE > 60 ML/MIN (60-); GLUCOSE 115 mg/dL (74-118); MAGNESIUM 1.6 MG/DL (1.3-2.1); POTASSIUM 3.7 mmol/L (3.5-5.1); SODIUM 136 mmol/L (136-145)
[2020-02-22] MEDS: HYDROMORPHONE 1MG/1ML INJ IV PRN ×3 (03:31→12:12)
[2020-02-22] MEDS: DEXTROSE 5%/0.45% SOD CHL 1,000 ML IV SCH ×2 (03:31→10:37)
[2020-02-22 04:51] LABS: BASOPHILS % 0.7 % (0.0-1.0); EOSINOPHILS # (AUTO) 0.1 (0.0-0.4); EOSINOPHILS % 2.5 % (0.0-6.0); HEMATOCRIT 38.2 % (38.2-49.6); HEMOGLOBIN 12.8 g/dL (14.0-18.0); LYMPHOCYTES # (AUTO) 1.2 (1.0-3.2); LYMPHOCYTES % 27.3 % (18.0-39.1); MEAN CORPUSCULAR HEMOGLOBIN 27.6 pg (28-32); MEAN CORPUSCULAR HGB CONC 33.5 g/dL (31-35); MEAN CORPUSCULAR VOLUME 82.3 fL (81-99); MONOCYTES # (AUTO) 0.4 (0.2-0.8); MONOCYTES % 9.7 % (4.4-11.3); NEUTROPHILS # (AUTO) 2.6 (2.1-6.9); NEUTROPHILS % 59.6 % (38.7-80.0); PLATELET COUNT 126 x10e3/uL (140-360); RED BLOOD COUNT 4.64 x10e6/uL (4.3-5.7); RED CELL DISTRIBUTION WIDTH 13.2 % (11.7-14.4)
[2020-02-22 05:07] LABS: ANION GAP 12.4 mmol/L (8-16); BLOOD UREA NITROGEN 9 mg/dL (7-26); BUN/CREATININE RATIO 14 (6-25); CALCIUM 7.6 mg/dL (8.4-10.2); CARBON DIOXIDE 21 mmol/L (22-29); CHLORIDE 106 mmol/L (98-107); CREATININE, SERUM 0.63 mg/dL (0.72-1.25); EST GLOMERULAR FILTRATION RATE > 60 ML/MIN (60-); GLUCOSE 123 mg/dL (74-118); MAGNESIUM 1.5 MG/DL (1.3-2.1); POTASSIUM 3.4 mmol/L (3.5-5.1); SODIUM 136 mmol/L (136-145)
[2020-02-22] MEDS ORDERED: POTASSIUM CHLORIDE 20MEQ/100ML 100 ML IV PRN (08:15)
[2020-02-22] MEDS ORDERED: FENOFIBRATE 145 MG TAB PO SCH (09:00)
[2020-02-22 09:48] LABS: ANION GAP 8.5 mmol/L (8-16); BLOOD UREA NITROGEN 7 mg/dL (7-26); BUN/CREATININE RATIO 12 (6-25); CALCIUM 7.6 mg/dL (8.4-10.2); CARBON DIOXIDE 25 mmol/L (22-29); CHLORIDE 106 mmol/L (98-107); EST GLOMERULAR FILTRATION RATE > 60 ML/MIN (60-); GLUCOSE 112 mg/dL (74-118); POTASSIUM 3.5 mmol/L (3.5-5.1); SODIUM 136 mmol/L (136-145)
[2020-02-22] MEDS ORDERED: NOVOLOG100 UNITS1 (10:21)
[2020-02-22] MEDS ORDERED: ATORVASTATIN CA40 MG (10:21)
[2020-02-22] MEDS ORDERED: BASAGLAR K100 UNIT/1 (10:21)
[2020-02-22] MEDS ORDERED: FENOFIBRATE145 M1 (10:21)
[2020-02-22] MEDS ORDERED: INSULIN GLARGINE 100 UNITS/ML VIAL SQ SCH (10:30)
[2020-02-22] MEDS ORDERED: INSULIN REGULAR, HUMAN 100 UNIT/1 ML 3ML VIAL SQ SCH (11:30)
--- NOTE | 2020-02-22 13:24 | NUR ---
Discharge Summary Patient: Baltazar Smith Admission date: 02/21/2020 Discharge date: 02/22/2020 Attending physician: Timi Merrill MD Consultation: None Admitting Diagnosis: Diabetic Ketoacidosis, Hypertriglyceridemia, Pancreatitis, nausea, epigastric abdominal pain Discharge Diagnosis: Diabetic Ketoacidosis, Hypertriglyceridemia, Pancreatitis, nausea, epigastric abdominal pain Procedures: None Hospital Course: Mr Smith is a 30 yo M with PMH of chronic pancreatitis 2/2 familial hypertriglyceridemia, and DM (unspecified type) who presented with generalized abdominal pain, found to be in DKA and acute hypertriglyceridemia pancreatitis. Anion gap in ED 28, lipase 240, TG 3400, with ketones in his urine. A1c 13. Started on insulin drip and admitted to MICU. His TG decreased to 400s, anion gap closed, and his symptoms resolved. He was transitioned to sub Q insulin and the insulin drip was discontinued after 2 hours. Patient tolerated PO diet and was discharged home with instructions to keep taking his insulin, fenofibrate, and atorvastatin as directed and follow-up in my clinic in 1 week. He will require close outpatient follow-up for his DM. Physical Exam: Vitals: Temp: 98.0P: 90BP: 106/69 RR: 14SpO2 99% General Appearance: The patient is alert, oriented and in no acute distress. Appears euvolemic. Skin: Warm and hydrated without any rash. HEENT: Head is normocephalic, atraumatic. Nontender sinuses. Pupils are equal and reactive. The nares are patent. Oropharynx is moist and clear without lesions. Neck: Supple without lymphadenopathy. No JVD. Thyroid NV/[employer] Heart / Cardiovascular: Regular rate and rhythm. Normal S1 and S2 without S3/S4. No murmurs, rubs or gallops. Peripheral pulses symmetric +2. Respiratory / Chest: No crackles or wheezes are heard. Symmetric breath sounds. Preserved chest expansion. Abdomen: Soft, nontender, nondistended with good bowel sounds heard. No clinical organomegaly. Renal: There is no costovertebral angle tenderness. Extremities: Without cyanosis, clubbing or edema. Preserved ROM. Neurological: Gross nonfocal. Patient oriented x 3. Cranial nerves II - 12 Grossly intact. DTRs +2. MS: 5/5 globally. Discharge medications: Fenofibrate 145mg daily Atorvastatin 40mg daily Glargine 30u daily Humalog 15u TID pre-meal Discharge plan: Condition on discharge: Good Activity: As tolerated Diet: Diabetic Diet Follow-up: Follow-up in my clinic within 1 week, phone number for appointments provided to patient Time spent on discharge: 60 minutes; [id number]
== END 2020-02-22 14:14 | disposition home or self-care (01) | DRG 637 ==
LOC: ER 08:02 → ERHOLD 10:09 → ICU 11:56
DX: E11.10 Type 2 diabetes mellitus with ketoacidosis without coma (principal); K85.90 Acute pancreatitis without necrosis or infection, unspecified; K21.9 Gastro-esophageal reflux disease without esophagitis; E78.1 Pure hyperglyceridemia; Z88.8 Allergy status to other drugs, medicaments and biological substances; E78.5 Hyperlipidemia, unspecified; Z79.4 Long term (current) use of insulin; Z83.3 Family history of diabetes mellitus; Z11.59 Encounter for screening for other viral diseases
CPT/HCPCS: 36415; 71045; 80048; 80053; 80061; 81001; 82948; 83036; 83605; 83690; 83735; 84478; 84484; 85025; 93005; 99284; J1170; J1815; J1817; J1885; J2405; J3010; J3475; J3480; J7030; J7050

== ENCOUNTER 2020-08-20 18:27 | Emergency (ER) | payer OTHER ==
[~2020-08-20] VITALS: Ht 172.7 cm; Wt 96.2 kg
[~2020-08-20 18:27] MED LIST changes: +ATORVASTATIN CA40 MG; +BASAGLAR K100 UNIT/1; +FENOFIBRATE145 M1; +NOVOLOG100 UNITS1
[2020-08-20 18:59] LABS: BASOPHILS # (AUTO) 0.1 (0.0-0.1); BASOPHILS % 0.4 % (0.0-1.0); EOSINOPHILS % 0.2 % (0.0-6.0); HEMATOCRIT 40.7 % (38.2-49.6); HEMOGLOBIN 21.6 g/dL (14.0-18.0); LYMPHOCYTES # (AUTO) 1.2 (1.0-3.2); LYMPHOCYTES % 10.1 % (18.0-39.1); MEAN CORPUSCULAR HEMOGLOBIN 43.1 pg (28-32); MEAN CORPUSCULAR HGB CONC 53.1 g/dL (31-35); MEAN CORPUSCULAR VOLUME 81.2 fL (81-99); MONOCYTES # (AUTO) 1.1 (0.2-0.8); MONOCYTES % 9.5 % (4.4-11.3); NEUTROPHILS # (AUTO) 9.3 (2.1-6.9); NEUTROPHILS % 79.3 % (38.7-80.0); PLATELET COUNT 144 x10e3/uL (140-360); RED BLOOD COUNT 5.01 x10e6/uL (4.3-5.7); RED CELL DISTRIBUTION WIDTH 12.8 % (11.7-14.4)
[2020-08-20] MEDS ORDERED: ONDANSETRON HCL INJ 2MG/ML 2ML 2 MG/ML VIAL IV STA (18:59)
[2020-08-20] MEDS ORDERED: SODIUM CHLORIDE 0.9% 1000ML 1,000 ML IV ONE (19:00)
[2020-08-20] MEDS ORDERED: ASPIRIN 81 MG CHEW TAB PO ONE (19:00)
[2020-08-20] MEDS ORDERED: ONDANSETRON HCL INJ 2MG/ML 2ML 2 MG/ML VIAL ONE (19:05)
[2020-08-20 19:18] LABS: ALBUMIN 4.7 g/dL (3.5-5.0); CALCIUM 9.6 mg/dL (8.4-10.2); CHLORIDE 87 mmol/L (98-107); POTASSIUM 3.2 mmol/L (3.5-5.1)
[2020-08-20 19:20] LABS: ALBUMIN/GLOBULIN RATIO 0.3 (0.8-2.0)
[2020-08-20 19:21] LABS: SODIUM 119 mmol/L (136-145)
[2020-08-20 19:32] LABS: GLUCOSE 247 mg/dL (74-118)
[2020-08-20 19:41] LABS: ALKALINE PHOSPHATASE 93 IU/L (40-150)
[2020-08-20] MEDS ORDERED: KETOROLAC TROMETHAMINE 30 MG/ML VIAL IV STA (19:46)
[2020-08-20 19:59] LABS: CLARITY,URINE CLEAR (CLEAR); COLOR,URINE YELLOW (YELLOW)
[2020-08-20 20:00] LABS: KETONES,URINE 2+ (NEGATIVE); LEUKOCYTE ESTERASE ,URINE NEGATIVE (NEGATIVE); NITRITE,URINE NEGATIVE (NEGATIVE); PROTEIN,URINE DIPSTICK 2+ (NEGATIVE); URINE UROBILINOGEN 0.2 mg/dL (0.2 - 1)
[2020-08-20 20:05] LABS: BLOOD UREA NITROGEN 14 mg/dL (7-26)
[2020-08-20 20:11] LABS: RBC,URINE 0-5 /HPF (0-5)
[2020-08-20 20:34] LABS: ALANINE AMINOTRANSFERASE 50 IU/L (0-55); CREATINE KINASE 137 IU/L (30-200)
[2020-08-20] MEDS ORDERED: SODIUM CHLORIDE 0.9% 1000ML 1,000 ML IV STA (20:44)
[2020-08-20 20:48] LABS: BUN/CREATININE RATIO 14 (6-25); CREATININE, SERUM 1.03 mg/dL (0.72-1.25); EST GLOMERULAR FILTRATION RATE > 60 ML/MIN (60-)
[2020-08-20 21:05] LABS: ANION GAP 18.2 mmol/L (8-16); CARBON DIOXIDE 17 mmol/L (22-29)
[2020-08-20] MEDS ORDERED: MORPHINE SULFATE INJ 4 MG/ML INJ 1ML IV PRN (22:30)
[2020-08-20] MEDS ORDERED: MAGNESIUM SULF 1GRAM/DEXTROSE 100 ML IV PRN (23:00)
[2020-08-20] MEDS ORDERED: INSULIN REGULAR, HUMAN 3ML VL 100 UNIT in SODIUM CHLORIDE 0.9% 100 ML IV SCH ×2 (23:00)
[2020-08-20] MEDS ORDERED: SODIUM CHLORIDE 0.9% 1000ML 1,000 ML IV SCH (23:00)
[2020-08-20] MEDS ORDERED: POTASSIUM CHLORIDE 20MEQ/100ML 100 ML IV PRN (23:00)
[2020-08-20] MEDS ORDERED: DEXTROSE 5%/0.45% SOD CHL 1,000 ML IV SCH (23:00)
[2020-08-21 00:42] LABS: CALCIUM 8.3 mg/dL (8.4-10.2); CHLORIDE 93 mmol/L (98-107); GLUCOSE 287 mg/dL (74-118); POTASSIUM 3.8 mmol/L (3.5-5.1); SODIUM 123 mmol/L (136-145)
[2020-08-21 01:12] LABS: BLOOD UREA NITROGEN 8 mg/dL (7-26); BUN/CREATININE RATIO 10 (6-25); CREATININE, SERUM 0.82 mg/dL (0.72-1.25); EST GLOMERULAR FILTRATION RATE > 60 ML/MIN (60-); MAGNESIUM 1.7 MG/DL (1.3-2.1)
[2020-08-21] MEDS ORDERED: KETOROLAC TROMETHAMINE 30 MG/ML VIAL IV STA (01:23)
[2020-08-21 01:33] LABS: ANION GAP 15.8 mmol/L (8-16); CARBON DIOXIDE 18 mmol/L (22-29)
[2020-08-21 03:14] VITALS: BP 132/65
== END 2020-08-21 02:30 | disposition other institution (70) ==
LOC: ER 18:44
DX: R10.9 Unspecified abdominal pain (principal); K85.90 Acute pancreatitis without necrosis or infection, unspecified; E78.1 Pure hyperglyceridemia; Z20.822 Contact with and (suspected) exposure to COVID-19
CPT/HCPCS: 36415; 80048; 80053; 81001; 82550; 82553; 82948; 83605; 83690; 83735; 84478; 84484; 85025; 93005; 99284; J1817; J1885 ×2; J2270; J2405; J7030; J7050; U0002